=== PATIENT | male | born 1945 | race African-American/Black ===

== ENCOUNTER 2019-06-08 16:28 | Observation (INO) ==
[2019-06-08 17:40] LABS: Basophils % 0.3 % (0.0-0.8); Eosinophils # 0.1 10*3/uL (0.0-0.87); Eosinophils % 0.7 % (0.00-10.9); Hematocrit 40.2 VOL% (42.0-52.0); Immature Granulocytes % 0.5 %; Immature Granulocytes Absolute 0.04 #; Lymphocytes # 0.7 10*3/uL (1.4-4.0); Lymphocytes % 8.1 % (21.2-54.2); Mean Corpuscular HGB Conc 32.3 GM/DL (32-36); Mean Corpuscular Volume 91.4 FL (87-102); Monocytes % 5.1 % (1.7-12.7); Neutrophils % 85.3 % (38.7-73.9); Platelet Count 199 T/CUMM (130-400); Red Cell Distribution Width 14.6 % (9.3-17.3); White Blood Count 8.8 T/CUMM (4-12)
[2019-06-08] MEDS ORDERED: SODIUM CHLORIDE 0.9% 1,000 ML IV STA (17:45)
[2019-06-08 17:51] LABS: INR 1.1; PT Patient Result 11.5 SECS; Partial Thromboplastin Time < 21.0 SECS (0-40)
[2019-06-08 17:59] LABS: Albumin 3.3 G/DL (3.4-5.0); Calcium 8.2 MG/DL (8.5-10.1); Osmolality,Calculated 277.5 MOS/KG (273-304); Total Protein 6.6 G/DL (6.4-8.3)
[2019-06-08 18:19] LABS: Apearance,Urine CLEAR (Clear); Bilirubin,Urine Negative (Negative); Blood, Urine Negative (Negative); Glucose,Urine (UA) Negative (Negative); Ketones,Urine Negative (Negative); Mucus,Urine Occasional /LPF (Occasional); Nitrite,Urine Negative (Negative); Protein,Urine Negative; RBC,Urine 1 /HPF (0-4); Urine Color Yellow (Yellow); Urine Specific Gravity 1.021 (1.001-1.035); Urine Urobilinogen < 2.0 EU/DL (0.2-1.0); WBC,Urine 1 /HPF (0-6)
[2019-06-08 18:20] LABS: Barbiturates Screen,Urine Negative (Negative); Benzodiazepines Screen,Urine Negative (Negative); Cannabinoid Screen,Urine Positive (Negative); Opiate Screen,Urine Negative (Negative); Phencyclidine Screen,Urine Negative (Negative)
[2019-06-08] MEDS ORDERED: ACETAMINOPHEN 325 MG TABLET PO PRN (20:24)
[2019-06-08] MEDS ORDERED: ONDANSETRON 4 MG/2 ML VIAL IV PRN (20:24)
[2019-06-08] MEDS ORDERED: cefTRIAXone 1,000 MG in SYRINGE 1 EACH IV SCH (21:00)
[2019-06-08] MEDS: DOCUSATE SODIUM 100 MG CAPSULE PO SCH (21:54)
[2019-06-08] MEDS: SODIUM CHLORIDE 0.9% 1,000 ML IV SCH (22:02)
[2019-06-09] MEDS: ALBUTEROL/IPRATROPIUM 3 ML NEB RESP TX SCH ×3 (00:53→07:25)
[2019-06-09] MEDS: SODIUM CHLORIDE 0.9% 1,000 ML IV SCH (06:02)
[2019-06-09] MEDS: DOCUSATE SODIUM 100 MG CAPSULE PO SCH (08:48)
[2019-06-09] MEDS ORDERED: PANTOPRAZOLE 40 MG TABLET PO SCH (09:00)
[2019-06-09 11:58] VITALS: BP 119/58
== END 2019-06-09 12:34 | disposition home or self-care (01) ==
LOC: N.ED 16:28 → N.EDINP 17:23 → INTOOBSV 17:23 → N.TELES 19:10
PROVIDERS: ADMIT Family Medicine; ATTEND Internal Medicine

== ENCOUNTER 2019-11-08 04:59 | Inpatient (IN) ==
[2019-11-08] MEDS ORDERED: ALBUTEROL 2.5 MG/3 ML NEB RESP TX STA (05:28)
[2019-11-08] MEDS ORDERED: ACETAMINOPHEN 500 MG TABLET PO STA (05:33)
[2019-11-08] MEDS ORDERED: SODIUM CHLORIDE 0.9% 1,000 ML IV STA (06:23)
[2019-11-08 06:33] LABS: Basophils % 0.5 % (0.0-0.8); Eosinophils # 0.2 10*3/uL (0.0-0.87); Eosinophils % 3.6 % (0.00-10.9); Hematocrit 38.3 VOL% (42.0-52.0); Hemoglobin 12.4 GM/DL (14.0-18.0); Immature Granulocytes % 0.2 %; Immature Granulocytes Absolute 0.01 #; Lymphocytes # 0.9 10*3/uL (1.4-4.0); Lymphocytes % 21.4 % (21.2-54.2); Mean Corpuscular HGB Conc 32.4 GM/DL (32-36); Mean Corpuscular Volume 92.1 FL (87-102); Monocytes % 13.1 % (1.7-12.7); Neutrophils % 61.2 % (38.7-73.9); Platelet Count 183 T/CUMM (130-400); Red Blood Count 4.16 MC/CUMM (3.8-5.5); Red Cell Distribution Width 14.6 % (9.3-17.3); White Blood Count 4.1 T/CUMM (4-12)
[2019-11-08 06:50] LABS: Calcium 8.3 MG/DL (8.5-10.1); Osmolality,Calculated 277.4 MOS/KG (273-304)
[2019-11-08] MEDS ORDERED: cefTRIAXone 1,000 MG in SODIUM CHLORIDE 0.9% 100 ML IV STA (08:55)
[2019-11-08] MEDS ORDERED: ACETAMINOPHEN 325 MG TABLET PO PRN (09:40)
[2019-11-08] MEDS ORDERED: ONDANSETRON 4 MG/2 ML VIAL IV PRN (09:40)
[2019-11-08] MEDS ORDERED: LACTULOSE 20 GM/30 ML UDCUP PO PRN (09:40)
[2019-11-08] MEDS ORDERED: BISACODYL 5 MG TABLET PO PRN (09:40)
[2019-11-08] MEDS ORDERED: cefTRIAXone 1,000 MG in SYRINGE 1 EACH IV SCH (10:30)
[2019-11-08 10:45] LABS: Risk Ratio 3.85; VLDL CHOLESTEROL 30.2 MG/DL
[2019-11-08 10:53] LABS: Hemoglobin 12.1 GM/DL (14.0-18.0)
[2019-11-08] MEDS ORDERED: INFLUENZA VIRUS VACCINE 0.5 ML SYRINGE IM ONE (10:54)
[2019-11-08] MEDS: PANTOPRAZOLE 40 MG VIAL IV SCH (11:05)
[2019-11-08] MEDS: SODIUM CHLORIDE 0.9% 1,000 ML IV SCH ×2 (11:10→22:22)
[2019-11-08] MEDS ORDERED: AZITHROMYCIN INJ 500 MG in SODIUM CHLORIDE 0.9% 250 ML IV SCH (14:00)
[2019-11-08] MEDS: ALBUTEROL/IPRATROPIUM 3 ML NEB RESP TX SCH ×2 (14:13→19:40)
[2019-11-08] MEDS: ACETAMINOPHEN 325 MG TABLET PO PRN ×2 (15:35→22:53)
[2019-11-08] MEDS ORDERED: MAGNESIUM SULF RIDER 2 GM in PREMIX 1 EACH IV PRN (15:49)
[2019-11-08] MEDS ORDERED: MAGNESIUM SULF RIDER 4 GM in PREMIX 1 EACH IV PRN (15:49)
[2019-11-08 15:56] LABS: Hematocrit 33.5 VOL% (42.0-52.0)
[2019-11-08 19:43] LABS: Apearance,Urine CLEAR (Clear); Bilirubin,Urine Negative (Negative); Blood, Urine Negative (Negative); Glucose,Urine (UA) Negative (Negative); Ketones,Urine Negative (Negative); Mucus,Urine Occasional /LPF (Occasional); Nitrite,Urine Negative (Negative); Protein,Urine Negative; RBC,Urine 2 /HPF (0-4); Urine Color Yellow (Yellow); Urine Specific Gravity 1.028 (1.001-1.035); Urine Urobilinogen < 2.0 EU/DL (0.2-1.0)
[2019-11-08] MEDS: SIMVASTATIN 40 MG TABLET PO SCH (20:52)
[2019-11-08 21:58] LABS: Hematocrit 36.1 VOL% (42.0-52.0); Hemoglobin 11.6 GM/DL (14.0-18.0)
[2019-11-09] MEDS ORDERED: IBUPROFEN 600 MG TABLET PO ONE (00:41)
[2019-11-09] MEDS: ALBUTEROL/IPRATROPIUM 3 ML NEB RESP TX SCH ×4 (01:26→19:31)
[2019-11-09 04:54] LABS: Hematocrit 35.4 VOL% (42.0-52.0); Hemoglobin 11.4 GM/DL (14.0-18.0)
[2019-11-09 04:56] LABS: Basophils % 0.4 % (0.0-0.8); Hematocrit 35.5 VOL% (42.0-52.0); Hemoglobin 11.6 GM/DL (14.0-18.0); Immature Granulocytes % 0.4 %; Immature Granulocytes Absolute 0.01 #; Lymphocytes # 0.4 10*3/uL (1.4-4.0); Lymphocytes % 13.2 % (21.2-54.2); Mean Corpuscular HGB Conc 32.7 GM/DL (32-36); Mean Platelet Volume 9.5 FL (9.6-12.0); Monocytes % 9.6 % (1.7-12.7); Neutrophils % 76.4 % (38.7-73.9); Platelet Count 151 T/CUMM (130-400); Red Cell Distribution Width 14.6 % (9.3-17.3); White Blood Count 2.7 T/CUMM (4-12)
[2019-11-09 05:29] LABS: Calcium 7.6 MG/DL (8.5-10.1); Osmolality,Calculated 288.6 MOS/KG (273-304)
[2019-11-09] MEDS: SODIUM CHLORIDE 0.9% 1,000 ML IV SCH ×2 (05:58→19:08)
[2019-11-09] MEDS: LEVOFLOXACIN INJ 750 MG in PREMIX 1 EACH IV SCH (07:59)
[2019-11-09] MEDS: PANTOPRAZOLE 40 MG VIAL IV SCH (09:26)
[2019-11-09] MEDS: PIPERACILLIN/TAZOBACTAM 3,375 MG in SODIUM CHLORIDE 0.9% 100 ML IV SCH ×2 (09:27→19:06)
[2019-11-09 09:56] LABS: Hematocrit 34.8 VOL% (42.0-52.0); Hemoglobin 11.2 GM/DL (14.0-18.0)
[2019-11-09] MEDS: ACETAMINOPHEN 325 MG TABLET PO PRN (15:18)
[2019-11-09 15:54] LABS: Hematocrit 36.2 VOL% (42.0-52.0); Hemoglobin 11.7 GM/DL (14.0-18.0)
[2019-11-09] MEDS: methylPREDNISolone SOD SUC 40 MG/1 ML VIAL IV SCH ×2 (19:06→23:06)
[2019-11-09] MEDS: BUDESONIDE 0.5 MG/2 ML NEB RESP TX SCH (19:31)
[2019-11-09] MEDS: DORNASE ALFA 2.5 MG/2.5 ML VIAL RESP TX SCH (19:46)
[2019-11-09] MEDS: SIMVASTATIN 40 MG TABLET PO SCH (20:40)
[2019-11-09 22:43] LABS: Hematocrit 37.5 VOL% (42.0-52.0); Hemoglobin 12.1 GM/DL (14.0-18.0)
[2019-11-10] MEDS: ALBUTEROL/IPRATROPIUM 3 ML NEB RESP TX SCH ×4 (00:34→19:29)
[2019-11-10] MEDS: PIPERACILLIN/TAZOBACTAM 3,375 MG in SODIUM CHLORIDE 0.9% 100 ML IV SCH ×3 (03:25→18:12)
[2019-11-10] MEDS: methylPREDNISolone SOD SUC 40 MG/1 ML VIAL IV SCH ×4 (04:57→22:36)
[2019-11-10 05:59] LABS: Hematocrit 36.9 VOL% (42.0-52.0); Hemoglobin 11.9 GM/DL (14.0-18.0)
[2019-11-10 06:16] LABS: Calcium 7.5 MG/DL (8.5-10.1)
[2019-11-10] MEDS: LEVOFLOXACIN INJ 750 MG in PREMIX 1 EACH IV SCH (07:44)
[2019-11-10] MEDS: BUDESONIDE 0.5 MG/2 ML NEB RESP TX SCH ×2 (07:47→19:29)
[2019-11-10] MEDS: DOCUSATE SODIUM 100 MG CAPSULE PO PRN (09:23)
[2019-11-10] MEDS: PANTOPRAZOLE 40 MG VIAL IV SCH (09:23)
[2019-11-10] MEDS: SODIUM CHLORIDE 0.9% 1,000 ML IV SCH (09:24)
[2019-11-10 10:22] LABS: Hemoglobin 12.5 GM/DL (14.0-18.0)
[2019-11-10] MEDS: DORNASE ALFA 2.5 MG/2.5 ML VIAL RESP TX SCH ×2 (10:27→19:29)
[2019-11-10 16:02] LABS: Hematocrit 37.3 VOL% (42.0-52.0); Hemoglobin 12.3 GM/DL (14.0-18.0)
[2019-11-10] MEDS: SIMVASTATIN 40 MG TABLET PO SCH (20:39)
[2019-11-10 21:45] LABS: Hematocrit 39.3 VOL% (42.0-52.0); Hemoglobin 12.6 GM/DL (14.0-18.0)
[2019-11-11] MEDS: ALBUTEROL/IPRATROPIUM 3 ML NEB RESP TX SCH ×4 (00:50→19:59)
[2019-11-11] MEDS: PIPERACILLIN/TAZOBACTAM 3,375 MG in SODIUM CHLORIDE 0.9% 100 ML IV SCH ×3 (03:15→18:09)
[2019-11-11] MEDS: methylPREDNISolone SOD SUC 40 MG/1 ML VIAL IV SCH ×4 (04:46→22:55)
[2019-11-11 05:20] LABS: Hematocrit 36.8 VOL% (42.0-52.0); Hemoglobin 12.1 GM/DL (14.0-18.0)
[2019-11-11 05:45] LABS: Osmolality,Calculated 290.8 MOS/KG (273-304)
[2019-11-11] MEDS: SODIUM CHLORIDE 0.9% 1,000 ML IV SCH (07:02)
[2019-11-11] MEDS: BUDESONIDE 0.5 MG/2 ML NEB RESP TX SCH ×2 (07:30→19:59)
[2019-11-11] MEDS: DORNASE ALFA 2.5 MG/2.5 ML VIAL RESP TX SCH ×2 (07:45→19:59)
[2019-11-11] MEDS: LEVOFLOXACIN INJ 750 MG in PREMIX 1 EACH IV SCH (09:31)
[2019-11-11] MEDS: PANTOPRAZOLE 40 MG VIAL IV SCH (09:34)
[2019-11-11] MEDS: SIMVASTATIN 40 MG TABLET PO SCH (20:58)
[2019-11-12] MEDS: ALBUTEROL/IPRATROPIUM 3 ML NEB RESP TX SCH ×4 (00:21→19:02)
[2019-11-12] MEDS: methylPREDNISolone SOD SUC 40 MG/1 ML VIAL IV SCH ×4 (02:10→16:37)
[2019-11-12] MEDS: PIPERACILLIN/TAZOBACTAM 3,375 MG in SODIUM CHLORIDE 0.9% 100 ML IV SCH ×3 (03:22→18:20)
[2019-11-12 05:15] LABS: Hematocrit 37.1 VOL% (42.0-52.0); Hemoglobin 12.2 GM/DL (14.0-18.0); Immature Granulocytes % 0.8 %; Immature Granulocytes Absolute 0.05 #; Lymphocytes # 0.3 10*3/uL (1.4-4.0); Lymphocytes % 4.5 % (21.2-54.2); Mean Corpuscular HGB Conc 32.9 GM/DL (32-36); Mean Corpuscular Volume 89.8 FL (87-102); Mean Platelet Volume 10.6 FL (9.6-12.0); Neutrophils % 91.7 % (38.7-73.9); Platelet Count 152 T/CUMM (130-400); Red Blood Count 4.13 MC/CUMM (3.8-5.5); Red Cell Distribution Width 14.4 % (9.3-17.3); White Blood Count 6.3 T/CUMM (4-12)
[2019-11-12 05:31] LABS: Calcium 8.1 MG/DL (8.5-10.1); Osmolality,Calculated 290.8 MOS/KG (273-304)
[2019-11-12 06:06] LABS: Band Neutrophils 1 % (0-10); Lymphocytes 5 % (20-55); Metamyelocytes 1 %; Platelet Estimate Adequate; Segmented Neutrophils 91 % (50-85); Total Cells Counted 100
[2019-11-12] MEDS: DORNASE ALFA 2.5 MG/2.5 ML VIAL RESP TX SCH ×2 (07:10→19:02)
[2019-11-12] MEDS: BUDESONIDE 0.5 MG/2 ML NEB RESP TX SCH ×2 (07:10→19:02)
[2019-11-12] MEDS ORDERED: METOPROLOL TARTRATE 5 MG/5 ML VIAL IV ONE (07:40)
[2019-11-12] MEDS ORDERED: METOPROLOL TARTRATE 25 MG TABLET PO ONE (09:01)
[2019-11-12] MEDS ORDERED: DILTIAZEM CD 120 MG CAPSULE PO ONE (09:01)
[2019-11-12] MEDS: SODIUM CHLORIDE 0.9% 1,000 ML IV SCH ×4 (09:19→22:15)
[2019-11-12] MEDS: APIXABAN 5 MG TABLET PO SCH ×2 (09:43→21:40)
[2019-11-12] MEDS: DOCUSATE SODIUM 100 MG CAPSULE PO PRN (09:43)
[2019-11-12] MEDS: PANTOPRAZOLE 40 MG VIAL IV SCH (09:52)
[2019-11-12] MEDS: LEVOFLOXACIN INJ 750 MG in PREMIX 1 EACH IV SCH (09:55)
[2019-11-12] MEDS: dilTIAZem Drip 125 MG/125 ML PREMIX IV SCH (10:17)
[2019-11-12] MEDS ORDERED: METOPROLOL TARTRATE 25 MG TABLET PO SCH (21:00)
[2019-11-12] MEDS: SOTALOL 80 MG TABLET PO SCH (21:40)
[2019-11-12] MEDS: SIMVASTATIN 40 MG TABLET PO SCH (21:40)
[2019-11-13] MEDS: ALBUTEROL/IPRATROPIUM 3 ML NEB RESP TX SCH ×3 (00:25→13:25)
[2019-11-13] MEDS: PIPERACILLIN/TAZOBACTAM 3,375 MG in SODIUM CHLORIDE 0.9% 100 ML IV SCH ×2 (05:05→12:00)
[2019-11-13] MEDS: methylPREDNISolone SOD SUC 40 MG/1 ML VIAL IV SCH ×2 (05:05→11:56)
[2019-11-13 05:19] LABS: Hemoglobin 11.4 GM/DL (14.0-18.0); Immature Granulocytes % 0.4 %; Immature Granulocytes Absolute 0.02 #; Lymphocytes # 0.4 10*3/uL (1.4-4.0); Lymphocytes % 6.9 % (21.2-54.2); Mean Corpuscular HGB Conc 32.6 GM/DL (32-36); Mean Corpuscular Volume 90.4 FL (87-102); Mean Platelet Volume 10.5 FL (9.6-12.0); Monocytes % 3.6 % (1.7-12.7); Neutrophils % 89.1 % (38.7-73.9); Platelet Count 131 T/CUMM (130-400); Red Blood Count 3.87 MC/CUMM (3.8-5.5); Red Cell Distribution Width 14.7 % (9.3-17.3); White Blood Count 5.5 T/CUMM (4-12)
[2019-11-13 05:50] LABS: Calcium 7.7 MG/DL (8.5-10.1); Osmolality,Calculated 282.4 MOS/KG (273-304)
[2019-11-13] MEDS: BUDESONIDE 0.5 MG/2 ML NEB RESP TX SCH (07:20)
[2019-11-13] MEDS: DORNASE ALFA 2.5 MG/2.5 ML VIAL RESP TX SCH (07:20)
[2019-11-13] MEDS: SOTALOL 80 MG TABLET PO SCH (09:27)
[2019-11-13] MEDS: APIXABAN 5 MG TABLET PO SCH (09:27)
[2019-11-13] MEDS: PANTOPRAZOLE 40 MG VIAL IV SCH (09:28)
[2019-11-13] MEDS: LEVOFLOXACIN INJ 750 MG in PREMIX 1 EACH IV SCH (09:28)
[2019-11-13] MEDS: dilTIAZem Drip 125 MG/125 ML PREMIX IV SCH (09:29)
[2019-11-13] MEDS: SODIUM CHLORIDE 0.9% 1,000 ML IV SCH (09:30)
[2019-11-13] MEDS ORDERED: MIDAZOLAM 2 MG/2 ML VIAL ONE (10:06)
[2019-11-13] MEDS ORDERED: SEVOFLURANE 1 UNIT/15 MINUTE INH ONE (10:06)
[2019-11-13] MEDS ORDERED: fentaNYL 100 MCG/2 ML VIAL ONE (10:07)
[2019-11-13] MEDS ORDERED: propofoL 200 MG/20 ML VIAL IV ONE (10:07)
[2019-11-13] MEDS ORDERED: LIDOCAINE 2% 5 ML VIAL ONE (10:07)
[2019-11-13] MEDS ORDERED: DEXAMETHASONE 4 MG/1 ML VIAL ONE (10:08)
[2019-11-13] MEDS ORDERED: ONDANSETRON 4 MG/2 ML VIAL ONE (10:08)
[2019-11-13] MEDS ORDERED: PHENYLEPHRINE 1 MG/10 ML SYRINGE IV ONE (10:08)
[2019-11-13] MEDS ORDERED: ETOMIDATE 40 MG/20 ML VIAL IV ONE (10:08)
[2019-11-13] MEDS ORDERED: PROMETHAZINE 25 MG/1 ML VIAL ONE (10:08)
[2019-11-13 11:45] VITALS: BP 143/71
[2019-11-13] MEDS ORDERED: INFLUENZA VIRUS VACCINE 0.5 ML SYRINGE IM ONE (15:30)
== END 2019-11-13 16:35 | disposition home or self-care (01) | DRG 194 ==
LOC: N.ED 04:59 → N.EDINP 09:40 → N.2E 10:00 → N.TELES 11-12 08:22
PROVIDERS: ADMIT Internal Medicine; ATTEND Internal Medicine

== ENCOUNTER 2021-08-16 09:04 | Inpatient (IN) ==
[2021-08-16] MEDS ORDERED: MORPHINE 2 MG/1 ML SYRINGE ONE (09:15)
[2021-08-16] MEDS ORDERED: ONDANSETRON 4 MG/2 ML VIAL ONE (09:15)
[2021-08-16] MEDS ORDERED: ASPIRIN 325 MG TABLET ONE (09:15)
[2021-08-16] MEDS ORDERED: HEPARIN 5,000 UNIT/1 ML VIAL ONE ×2 (09:16→09:44)
[2021-08-16] MEDS ORDERED: SODIUM CHLORIDE 0.9% 1,000 ML IV STA (09:17)
[2021-08-16] MEDS ORDERED: HEPARIN/NACL 0.9% 2 UNITS/ML 2,000 UNIT/1,000 ML BAG IV ONE (09:19)
[2021-08-16] MEDS ORDERED: ONDANSETRON 4 MG/2 ML VIAL IV STA (09:19)
[2021-08-16] MEDS ORDERED: ASPIRIN 325 MG TABLET PO STA (09:19)
[2021-08-16] MEDS ORDERED: MORPHINE 2 MG/1 ML SYRINGE IV STA (09:19)
[2021-08-16] MEDS ORDERED: LIDOCAINE 1% 20 ML VIAL ONE (09:19)
[2021-08-16] MEDS ORDERED: HEPARIN 5,000 UNIT/1 ML VIAL IV ONE (09:19)
[2021-08-16] MEDS ORDERED: MIDAZOLAM 2 MG/2 ML VIAL ONE ×2 (09:25→10:04)
[2021-08-16] MEDS ORDERED: fentaNYL 100 MCG/2 ML VIAL ONE (09:25)
[2021-08-16 09:35] LABS: Basophils % 0.4 % (0.0-0.8); Eosinophils # 0.2 10*3/uL (0.0-0.87); Eosinophils % 3.1 % (0.00-10.9); Hematocrit 38.6 VOL% (42.0-52.0); Hemoglobin 12.6 GM/DL (14.0-18.0); Immature Granulocytes % 0.4 %; Immature Granulocytes Absolute 0.02 #; Lymphocytes # 1.8 10*3/uL (1.4-4.0); Lymphocytes % 36.9 % (21.2-54.2); Mean Corpuscular HGB Conc 32.6 GM/DL (32-36); Mean Corpuscular Volume 91.3 FL (87-102); Mean Platelet Volume 9.5 FL (9.6-12.0); Monocytes % 11.3 % (1.7-12.7); Neutrophils % 47.9 % (38.7-73.9); Platelet Count 213 T/CUMM (130-400); Red Blood Count 4.23 MC/CUMM (3.8-5.5); Red Cell Distribution Width 17.6 % (9.3-17.3); White Blood Count 4.9 T/CUMM (4-12)
[2021-08-16 09:47] LABS: INR 1.2; PT Patient Result 12.7 SECS (10.5-12.0); Partial Thromboplastin Time 39.9 SECS (23.9-33.8)
[2021-08-16 09:56] LABS: Albumin 3.5 G/DL (3.4-5.0); Bilirubin,Total 0.6 MG/DL (0.20-1.00); Osmolality,Calculated 284.4 MOS/KG (273-304); Potassium 3.7 MMOL/L (3.5-5.1); Total Protein 7.3 G/DL (6.4-8.2)
[2021-08-16] MEDS ORDERED: TICAGRELOR 90 MG TABLET ONE (10:03)
[2021-08-16] MEDS ORDERED: ACETAMINOPHEN 325 MG TABLET PO PRN (10:15)
[2021-08-16] MEDS ORDERED: NITROGLYCERIN SL 0.4 MG TABLET SL PRN (10:15)
[2021-08-16] MEDS ORDERED: FLUTICASONE 50 MCG NASAL SPRAY 16 GM BOTTLE BOTH NARES PRN (10:23)
[2021-08-16] MEDS ORDERED: hydrALAZINE 20 MG/1 ML VIAL IV PRN (10:25)
[2021-08-16] MEDS ORDERED: SODIUM CHLORIDE 0.9% 1,000 ML IV SCH (10:30)
[2021-08-16] MEDS ORDERED: MORPHINE 2 MG/1 ML SYRINGE IV ONE (13:02)
[2021-08-16] MEDS ORDERED: PNEUMOCOCCAL VACCINE (13 VALENT) 0.5 ML SYRINGE IM ONE (13:49)
[2021-08-16] MEDS: FAMOTIDINE 20 MG TABLET PO SCH ×2 (14:28→20:13)
[2021-08-16] MEDS: PANTOPRAZOLE 40 MG TABLET PO SCH (14:28)
[2021-08-16] MEDS: METOPROLOL TARTRATE 50 MG TABLET PO SCH (20:08)
[2021-08-16] MEDS: ATORVASTATIN 40 MG TABLET PO SCH (20:14)
[2021-08-16] MEDS: TAMSULOSIN 0.4 MG CAPSULE PO SCH (20:14)
[2021-08-16] MEDS: TICAGRELOR 90 MG TABLET PO SCH (20:14)
[2021-08-17] MEDS ORDERED: DOCUSATE SODIUM 100 MG CAPSULE PO ONE (00:46)
[2021-08-17 05:07] LABS: Basophils % 0.8 % (0.0-0.8); Eosinophils # 0.2 10*3/uL (0.0-0.87); Eosinophils % 3.8 % (0.00-10.9); Hematocrit 37.7 VOL% (42.0-52.0); Hemoglobin 11.8 GM/DL (14.0-18.0); Immature Granulocytes % 0.5 %; Immature Granulocytes Absolute 0.02 #; Lymphocytes # 0.6 10*3/uL (1.4-4.0); Lymphocytes % 14.2 % (21.2-54.2); Mean Corpuscular HGB Conc 31.3 GM/DL (32-36); Mean Corpuscular Volume 92.2 FL (87-102); Mean Platelet Volume 9.8 FL (9.6-12.0); Monocytes % 11.2 % (1.7-12.7); Neutrophils % 69.5 % (38.7-73.9); Platelet Count 193 T/CUMM (130-400); Red Blood Count 4.09 MC/CUMM (3.8-5.5); White Blood Count 3.9 T/CUMM (4-12)
[2021-08-17 05:25] LABS: Calcium 8.7 MG/DL (8.5-10.1); Osmolality,Calculated 282.3 MOS/KG (273-304); Potassium 4.8 MMOL/L (3.5-5.1)
[2021-08-17] MEDS: FAMOTIDINE 20 MG TABLET PO SCH ×2 (08:58→20:21)
[2021-08-17] MEDS: ASPIRIN EC 81 MG TABLET PO SCH (08:58)
[2021-08-17] MEDS: METOPROLOL TARTRATE 50 MG TABLET PO SCH ×2 (08:59→20:38)
[2021-08-17] MEDS: AMIODARONE 200 MG TABLET PO SCH (08:59)
[2021-08-17] MEDS: LOSARTAN 25 MG TABLET PO SCH (08:59)
[2021-08-17] MEDS: PANTOPRAZOLE 40 MG TABLET PO SCH (08:59)
[2021-08-17] MEDS: TICAGRELOR 90 MG TABLET PO SCH ×2 (08:59→20:21)
[2021-08-17] MEDS ORDERED: ALUMINUM/MAGNES/SIMETH MAX STR 30 ML UDCUP PO PRN (13:45)
[2021-08-17] MEDS: ATORVASTATIN 40 MG TABLET PO SCH (20:21)
[2021-08-17] MEDS: TAMSULOSIN 0.4 MG CAPSULE PO SCH (20:21)
[2021-08-18 05:16] LABS: Basophils % 0.3 % (0.0-0.8); Eosinophils # 0.2 10*3/uL (0.0-0.87); Eosinophils % 4.2 % (0.00-10.9); Hematocrit 34.9 VOL% (42.0-52.0); Hemoglobin 11.1 GM/DL (14.0-18.0); Immature Granulocytes % 0.5 %; Immature Granulocytes Absolute 0.02 #; Lymphocytes # 0.8 10*3/uL (1.4-4.0); Lymphocytes % 19.8 % (21.2-54.2); Mean Corpuscular HGB Conc 31.8 GM/DL (32-36); Mean Corpuscular Volume 91.1 FL (87-102); Mean Platelet Volume 9.9 FL (9.6-12.0); Monocytes % 11.7 % (1.7-12.7); Neutrophils % 63.5 % (38.7-73.9); Platelet Count 190 T/CUMM (130-400); Red Blood Count 3.83 MC/CUMM (3.8-5.5); Red Cell Distribution Width 17.9 % (9.3-17.3); White Blood Count 3.8 T/CUMM (4-12)
[2021-08-18 05:39] LABS: Calcium 8.5 MG/DL (8.5-10.1); Osmolality,Calculated 283.3 MOS/KG (273-304); Potassium 4.6 MMOL/L (3.5-5.1)
[2021-08-18] MEDS: TICAGRELOR 90 MG TABLET PO SCH (08:35)
[2021-08-18] MEDS: METOPROLOL TARTRATE 50 MG TABLET PO SCH (08:35)
[2021-08-18] MEDS: ASPIRIN EC 81 MG TABLET PO SCH (08:35)
[2021-08-18] MEDS: FAMOTIDINE 20 MG TABLET PO SCH (08:35)
[2021-08-18] MEDS: LOSARTAN 25 MG TABLET PO SCH (08:35)
[2021-08-18] MEDS: AMIODARONE 200 MG TABLET PO SCH (08:35)
[2021-08-18] MEDS: PANTOPRAZOLE 40 MG TABLET PO SCH (08:35)
[2021-08-18] MEDS ORDERED: BISACODYL 5 MG TABLET PO ONE (11:14)
[2021-08-18 13:06] VITALS: BP 114/55
== END 2021-08-18 15:05 | disposition home or self-care (01) | DRG 247 ==
LOC: N.ED 09:04 → N.CL 09:29 → N.CC 10:23 → N.CL 10:30 → N.CC 13:21 → N.TELEN 08-17 10:15
PROVIDERS: ADMIT Internal Medicine Cardiovascular Disease; ATTEND Internal Medicine Cardiovascular Disease
PROC: CLCCHCL (ICD-10-PCS; 2021-08-16 09:45)

== ENCOUNTER 2022-05-08 09:57 | Inpatient (IN) ==
[2022-05-08 11:19] LABS: Basophils % 0.5 % (0.0-0.8); Eosinophils % 0.8 % (0.00-10.9); Hematocrit 25.3 VOL% (42.0-52.0); Hemoglobin 7.5 GM/DL (14.0-18.0); Immature Granulocytes % 0.8 %; Immature Granulocytes Absolute 0.03 #; Lymphocytes # 0.5 10*3/uL (1.4-4.0); Lymphocytes % 13.7 % (21.2-54.2); Mean Corpuscular HGB Conc 29.6 GM/DL (32-36); Mean Platelet Volume 9.1 FL (9.6-12.0); Monocytes # 0.3 10*3/uL (0.11-0.8); Monocytes % 8.8 % (1.7-12.7); NRBC # 0.03 10*3/uL; Neutrophils % 75.4 % (38.7-73.9); Platelet Count 246 T/CUMM (130-400); Red Blood Count 2.81 MC/CUMM (3.8-5.5); Red Cell Distribution Width 24.7 % (9.3-17.3); White Blood Count 3.6 T/CUMM (4-12)
[2022-05-08 11:33] LABS: INR 1.1; Partial Thromboplastin Time 27.9 SECS (23.7-32.9)
[2022-05-08 11:39] LABS: Albumin 2.8 G/DL (3.4-5.0); Bilirubin,Total 0.4 MG/DL (0.20-1.00); Calcium 8.9 MG/DL (8.5-10.1); Osmolality,Calculated 280.3 MOS/KG (273-304); Potassium 3.9 MMOL/L (3.5-5.1); Total Protein 5.9 G/DL (6.4-8.2)
[2022-05-08] MEDS ORDERED: DEXTROSE 10% 250 ML BAG IV PRN (13:25)
[2022-05-08] MEDS ORDERED: GLUCAGON 1 MG VIAL IM PRN (13:25)
[2022-05-08] MEDS: LACTATED RINGERS 1,000 ML IV SCH (13:43)
[2022-05-08] MEDS: PANTOPRAZOLE 40 MG VIAL IV SCH ×2 (13:48→20:38)
[2022-05-08] MEDS ORDERED: NITROGLYCERIN SL 0.4 MG TABLET SL PRN (13:55)
[2022-05-08 14:06] LABS: Mucus,Urine Occasional /LPF (Occasional); RBC,Urine 1 /HPF (0-4)
[2022-05-08 14:07] LABS: Urine Appearance Clear (Clear); Urine Color Yellow (Yellow)
[2022-05-08 14:08] LABS: Bilirubin,Urine Negative (Negative); Blood, Urine Negative (Negative); Glucose,Urine (UA) Negative (Negative); Ketones,Urine Negative (Negative); Nitrite,Urine Negative (Negative); Protein,Urine Negative (Negative); Urine Specific Gravity 1.025 (1.001-1.035); Urine Urobilinogen 0.2 eU/dL (<2.0); Urine pH 6.5 (4.5-8.0)
[2022-05-08 16:03] LABS: Hematocrit 23.4 VOL% (42.0-52.0); Hemoglobin 6.9 GM/DL (14.0-18.0)
[2022-05-08 16:36] LABS: INR 1.1; PT Patient Result 11.8 SECS (10.5-12.0); Partial Thromboplastin Time 26.4 SECS (23.7-32.9)
[2022-05-08 19:47] LABS: Hematocrit 25.3 VOL% (42.0-52.0); Hemoglobin 7.5 GM/DL (14.0-18.0)
[2022-05-08] MEDS: ATORVASTATIN 40 MG TABLET PO SCH (20:38)
[2022-05-08] MEDS: ACETAMINOPHEN 325 MG TABLET PO PRN (20:48)
[2022-05-09 01:47] LABS: Basophils % 0.7 % (0.0-0.8); Eosinophils # 0.1 10*3/uL (0.0-0.87); Eosinophils % 2.3 % (0.00-10.9); Hematocrit 24.3 VOL% (42.0-52.0); Hemoglobin 7.2 GM/DL (14.0-18.0); Immature Granulocytes % 0.7 %; Immature Granulocytes Absolute 0.02 #; Lymphocytes # 0.5 10*3/uL (1.4-4.0); Lymphocytes % 16.7 % (21.2-54.2); Mean Corpuscular HGB Conc 29.6 GM/DL (32-36); Mean Platelet Volume 8.9 FL (9.6-12.0); Monocytes # 0.3 10*3/uL (0.11-0.8); Monocytes % 10.7 % (1.7-12.7); Neutrophils % 68.9 % (38.7-73.9); Platelet Count 215 T/CUMM (130-400); Red Cell Distribution Width 24.5 % (9.3-17.3)
[2022-05-09] MEDS: LACTATED RINGERS 1,000 ML IV SCH ×2 (01:49→09:18)
[2022-05-09 02:06] LABS: Albumin 2.6 G/DL (3.4-5.0); Bilirubin,Total 0.4 MG/DL (0.20-1.00); Calcium 8.8 MG/DL (8.5-10.1); Osmolality,Calculated 278.5 MOS/KG (273-304); Potassium 3.9 MMOL/L (3.5-5.1); Total Protein 5.6 G/DL (6.4-8.2)
[2022-05-09 02:52] LABS: Eosinophils 1 % (0-10); Lymphocytes 13 % (20-55); Platelet Estimate Adequate; Total Cells Counted 100
[2022-05-09 02:53] LABS: Anisocytosis 1+; Polychromasia 1+; Target Cells 1+
[2022-05-09 07:59] LABS: Hematocrit 25.1 VOL% (42.0-52.0); Hemoglobin 7.5 GM/DL (14.0-18.0)
[2022-05-09] MEDS: predniSONE 20 MG TABLET PO SCH (08:14)
[2022-05-09] MEDS: AMIODARONE 200 MG TABLET PO SCH (08:14)
[2022-05-09] MEDS: PANTOPRAZOLE 40 MG VIAL IV SCH ×2 (08:15→21:13)
[2022-05-09] MEDS ORDERED: SODIUM CHLORIDE 0.9% 1,000 ML IV PRN (10:54)
[2022-05-09] MEDS ORDERED: ALBUTEROL 2.5 MG/3 ML NEB RESP TX PRN (10:56)
[2022-05-09 11:20] LABS: % Iron Saturation 6.8 % (18-50); Ferritin 21.1 ng/mL (26-388)
[2022-05-09] MEDS: ACETAMINOPHEN 325 MG TABLET PO PRN (18:32)
[2022-05-09 19:15] LABS: Hematocrit 30.3 VOL% (42.0-52.0); Hemoglobin 9.1 GM/DL (14.0-18.0)
[2022-05-09] MEDS ORDERED: SERTRALINE 25 MG TABLET PO SCH (21:00)
[2022-05-09] MEDS: ATORVASTATIN 40 MG TABLET PO SCH (21:13)
[2022-05-10 05:59] LABS: Basophils % 0.5 % (0.0-0.8); Eosinophils # 0.1 10*3/uL (0.0-0.87); Hemoglobin 11.1 GM/DL (14.0-18.0); Immature Granulocytes % 0.5 %; Immature Granulocytes Absolute 0.02 #; Lymphocytes # 0.6 10*3/uL (1.4-4.0); Mean Corpuscular HGB Conc 29.5 GM/DL (32-36); Mean Corpuscular Volume 93.5 FL (87-102); Mean Platelet Volume 8.8 FL (9.6-12.0); Monocytes # 0.4 10*3/uL (0.11-0.8); Monocytes % 10.5 % (1.7-12.7); Neutrophils % 72.5 % (38.7-73.9); Platelet Count 211 T/CUMM (130-400); Red Blood Count 4.02 MC/CUMM (3.8-5.5); Red Cell Distribution Width 21.5 % (9.3-17.3); White Blood Count 4.1 T/CUMM (4-12)
[2022-05-10 06:00] LABS: Hematocrit 37.6 VOL% (42.0-52.0)
[2022-05-10 06:12] LABS: Calcium 8.8 MG/DL (8.5-10.1); Osmolality,Calculated 271.8 MOS/KG (273-304)
[2022-05-10] MEDS ORDERED: guaiFENesin/DM ER 600-30 MG TABLET PO PRN (10:21)
[2022-05-10] MEDS ORDERED: FLUTICASONE 50 MCG NASAL SPRAY 16 GM BOTTLE BOTH NARES SCH (10:30)
[2022-05-10] MEDS ORDERED: LACTATED RINGERS 1,000 ML IV SCH (11:18)
[2022-05-10] MEDS ORDERED: LIDOCAINE 2% 5 ML VIAL ONE (12:31)
[2022-05-10] MEDS ORDERED: propofoL 200 MG/20 ML VIAL IV ONE (12:31)
[2022-05-10] MEDS ORDERED: ETOMIDATE 20 MG/10 ML VIAL IV ONE (12:36)
[2022-05-10 13:22] VITALS: BP 111/55
[2022-05-10] MEDS: PANTOPRAZOLE 40 MG VIAL IV SCH (13:55)
[2022-05-10] MEDS: AMIODARONE 200 MG TABLET PO SCH (13:56)
[2022-05-10] MEDS: predniSONE 20 MG TABLET PO SCH (13:56)
== END 2022-05-10 15:40 | disposition home or self-care (01) | DRG 378 ==
LOC: N.ED 09:57 → SUATTDRO 13:27 → N.EDINP 13:27 → N.TELES 15:05
PROVIDERS: ADMIT Internal Medicine; ATTEND Internal Medicine

== ENCOUNTER 2022-05-29 08:08 | Inpatient (IN) ==
[2022-05-29 08:33] LABS: Basophils % 0.4 % (0.0-0.8); Eosinophils # 0.1 10*3/uL (0.0-0.87); Eosinophils % 0.8 % (0.00-10.9); Hemoglobin 9.3 GM/DL (14.0-18.0); Immature Granulocytes % 1.5 %; Immature Granulocytes Absolute 0.11 #; Lymphocytes # 0.6 10*3/uL (1.4-4.0); Lymphocytes % 7.8 % (21.2-54.2); Mean Corpuscular Volume 87.5 FL (87-102); Mean Platelet Volume 9.6 FL (9.6-12.0); Monocytes # 0.4 10*3/uL (0.11-0.8); Monocytes % 4.8 % (1.7-12.7); NRBC # 0.03 10*3/uL; Neutrophils % 84.7 % (38.7-73.9); Platelet Count 254 T/CUMM (130-400); Red Blood Count 3.43 MC/CUMM (3.8-5.5); Red Cell Distribution Width 20.6 % (9.3-17.3); White Blood Count 7.5 T/CUMM (4-12)
[2022-05-29 08:58] LABS: Albumin 2.7 G/DL (3.4-5.0); Bilirubin,Total 0.5 MG/DL (0.20-1.00); Calcium 8.3 MG/DL (8.5-10.1); Osmolality,Calculated 277.5 MOS/KG (273-304); Potassium 4.2 MMOL/L (3.5-5.1)
[2022-05-29] MEDS ORDERED: MECLIZINE 12.5 MG TABLET PO STA (10:37)
[2022-05-29] MEDS ORDERED: MECLIZINE 25 MG TABLET PO STA (10:43)
[2022-05-29] MEDS ORDERED: ONDANSETRON 4 MG/2 ML VIAL IV PRN (12:57)
[2022-05-29] MEDS ORDERED: guaiFENesin/DM ER 600-30 MG TABLET PO PRN (12:57)
[2022-05-29] MEDS ORDERED: DEXTROSE 10% 250 ML BAG IV PRN (12:57)
[2022-05-29] MEDS ORDERED: GLUCAGON 1 MG VIAL IM PRN (12:57)
[2022-05-29] MEDS ORDERED: NITROGLYCERIN SL 0.4 MG TABLET SL PRN (13:04)
[2022-05-29] MEDS: HEPARIN 5,000 UNIT/1 ML VIAL SUBCUT SCH (13:47)
[2022-05-29] MEDS ORDERED: TAMSULOSIN 0.4 MG CAPSULE PO SCH (19:00)
[2022-05-29] MEDS ORDERED: SODIUM CHLORIDE 0.9% 1,000 ML IV SCH (20:30)
[2022-05-30] MEDS: ACETAMINOPHEN 325 MG TABLET PO PRN (01:04)
[2022-05-30] MEDS: HEPARIN 5,000 UNIT/1 ML VIAL SUBCUT SCH ×2 (01:05→12:15)
[2022-05-30 01:31] LABS: Basophils % 0.3 % (0.0-0.8); Eosinophils # 0.1 10*3/uL (0.0-0.87); Eosinophils % 1.2 % (0.00-10.9); Hematocrit 28.6 VOL% (42.0-52.0); Hemoglobin 8.5 GM/DL (14.0-18.0); Immature Granulocytes % 0.7 %; Immature Granulocytes Absolute 0.05 #; Lymphocytes # 0.6 10*3/uL (1.4-4.0); Lymphocytes % 8.9 % (21.2-54.2); Mean Corpuscular HGB Conc 29.7 GM/DL (32-36); Mean Corpuscular Volume 89.9 FL (87-102); Mean Platelet Volume 9.9 FL (9.6-12.0); Monocytes # 0.3 10*3/uL (0.11-0.8); Monocytes % 4.6 % (1.7-12.7); Neutrophils % 84.3 % (38.7-73.9); Platelet Count 237 T/CUMM (130-400); Red Blood Count 3.18 MC/CUMM (3.8-5.5); Red Cell Distribution Width 20.2 % (9.3-17.3); White Blood Count 6.8 T/CUMM (4-12)
[2022-05-30 01:45] LABS: Calcium 8.3 MG/DL (8.5-10.1); Potassium 3.7 MMOL/L (3.5-5.1)
[2022-05-30] MEDS ORDERED: SODIUM CHLORIDE 0.9% 1,000 ML IV ONE (04:18)
[2022-05-30] MEDS: ASPIRIN EC 81 MG TABLET PO SCH (08:53)
[2022-05-30] MEDS: AMIODARONE 200 MG TABLET PO SCH (08:54)
[2022-05-30] MEDS: ATORVASTATIN 80 MG TABLET PO SCH (08:54)
[2022-05-30] MEDS: MONTELUKAST 10 MG TABLET PO SCH (08:54)
[2022-05-30] MEDS: FERROUS SULFATE 325 MG TABLET PO SCH (08:54)
[2022-05-30] MEDS: PANTOPRAZOLE 40 MG TABLET PO SCH (08:54)
[2022-05-30] MEDS: CHOLECALCIFEROL 5,000 UNIT TABLET PO SCH ×2 (08:58→21:10)
[2022-05-30] MEDS ORDERED: predniSONE 20 MG TABLET PO SCH (09:00)
[2022-05-30] MEDS: methylPREDNISolone SOD SUC 40 MG/1 ML VIAL IV SCH ×2 (15:04→22:05)
[2022-05-30] MEDS: cefTRIAXone 1,000 MG in SODIUM CHLORIDE 0.9% 100 ML IV SCH (15:06)
[2022-05-30] MEDS: TAMSULOSIN 0.4 MG CAPSULE PO SCH (21:10)
[2022-05-31] MEDS: HEPARIN 5,000 UNIT/1 ML VIAL SUBCUT SCH ×2 (01:38→14:10)
[2022-05-31 04:51] LABS: Hematocrit 27.6 VOL% (42.0-52.0); Hemoglobin 8.4 GM/DL (14.0-18.0); Immature Granulocytes % 0.8 %; Immature Granulocytes Absolute 0.06 #; Lymphocytes # 0.3 10*3/uL (1.4-4.0); Lymphocytes % 4.3 % (21.2-54.2); Mean Corpuscular HGB Conc 30.4 GM/DL (32-36); Mean Corpuscular Volume 88.2 FL (87-102); Mean Platelet Volume 9.7 FL (9.6-12.0); Monocytes # 0.1 10*3/uL (0.11-0.8); Monocytes % 1.3 % (1.7-12.7); Neutrophils % 93.6 % (38.7-73.9); Platelet Count 256 T/CUMM (130-400); Red Blood Count 3.13 MC/CUMM (3.8-5.5); Red Cell Distribution Width 19.9 % (9.3-17.3); White Blood Count 7.5 T/CUMM (4-12)
[2022-05-31 05:08] LABS: Calcium 8.6 MG/DL (8.5-10.1); Osmolality,Calculated 283.4 MOS/KG (273-304); Potassium 4.7 MMOL/L (3.5-5.1)
[2022-05-31 05:14] LABS: Lymphocytes 3 % (20-55); Platelet Estimate Normal; Total Cells Counted 100
[2022-05-31] MEDS: ASPIRIN EC 81 MG TABLET PO SCH (08:21)
[2022-05-31] MEDS: MONTELUKAST 10 MG TABLET PO SCH (08:22)
[2022-05-31] MEDS: PANTOPRAZOLE 40 MG TABLET PO SCH (08:22)
[2022-05-31] MEDS: AMIODARONE 200 MG TABLET PO SCH (08:22)
[2022-05-31] MEDS: FERROUS SULFATE 325 MG TABLET PO SCH (08:22)
[2022-05-31] MEDS: ATORVASTATIN 80 MG TABLET PO SCH (08:22)
[2022-05-31] MEDS: methylPREDNISolone SOD SUC 40 MG/1 ML VIAL IV SCH ×3 (08:24→21:55)
[2022-05-31] MEDS: CHOLECALCIFEROL 5,000 UNIT TABLET PO SCH ×2 (08:27→21:54)
[2022-05-31 08:33] LABS: INR 1.1
[2022-05-31] MEDS: cefTRIAXone 1,000 MG in SODIUM CHLORIDE 0.9% 100 ML IV SCH (14:09)
[2022-05-31] MEDS: TAMSULOSIN 0.4 MG CAPSULE PO SCH (21:54)
[2022-06-01] MEDS: HEPARIN 5,000 UNIT/1 ML VIAL SUBCUT SCH ×2 (01:56→12:53)
[2022-06-01] MEDS: ACETAMINOPHEN 325 MG TABLET PO PRN (04:40)
[2022-06-01 05:02] LABS: Hemoglobin 7.8 GM/DL (14.0-18.0); Immature Granulocytes % 0.8 %; Immature Granulocytes Absolute 0.09 #; Lymphocytes # 0.3 10*3/uL (1.4-4.0); Lymphocytes % 2.6 % (21.2-54.2); Mean Corpuscular Volume 88.7 FL (87-102); Mean Platelet Volume 9.7 FL (9.6-12.0); Monocytes # 0.4 10*3/uL (0.11-0.8); Monocytes % 3.6 % (1.7-12.7); Platelet Count 265 T/CUMM (130-400); Red Blood Count 2.93 MC/CUMM (3.8-5.5); Red Cell Distribution Width 19.7 % (9.3-17.3); White Blood Count 11.4 T/CUMM (4-12)
[2022-06-01 05:26] LABS: Calcium 8.2 MG/DL (8.5-10.1); Osmolality,Calculated 281.7 MOS/KG (273-304); Potassium 4.7 MMOL/L (3.5-5.1)
[2022-06-01 05:56] LABS: Anisocytosis 1+; Burr Cells Few; Lymphocytes 2 % (20-55); Macrocytosis 1+; Platelet Estimate Normal; Tear Drop Cells Few; Total Cells Counted 100
[2022-06-01] MEDS: methylPREDNISolone SOD SUC 40 MG/1 ML VIAL IV SCH ×3 (07:03→22:30)
[2022-06-01] MEDS: FERROUS SULFATE 325 MG TABLET PO SCH (09:35)
[2022-06-01] MEDS: MONTELUKAST 10 MG TABLET PO SCH (09:35)
[2022-06-01] MEDS: CHOLECALCIFEROL 5,000 UNIT TABLET PO SCH ×2 (09:35→22:10)
[2022-06-01] MEDS: AMIODARONE 200 MG TABLET PO SCH (09:35)
[2022-06-01] MEDS: PANTOPRAZOLE 40 MG TABLET PO SCH (09:36)
[2022-06-01] MEDS: ASPIRIN EC 81 MG TABLET PO SCH (09:36)
[2022-06-01] MEDS: ATORVASTATIN 80 MG TABLET PO SCH (09:36)
[2022-06-01] MEDS ORDERED: ALBUTEROL 2.5 MG/3 ML NEB RESP TX PRN (13:23)
[2022-06-01] MEDS: ALBUTEROL/IPRATROPIUM 3 ML NEB RESP TX SCH ×3 (13:26→19:35)
[2022-06-01] MEDS ORDERED: ZALEPLON 5 MG CAPSULE PO PRN (13:29)
[2022-06-01] MEDS: cefTRIAXone 1,000 MG in SODIUM CHLORIDE 0.9% 100 ML IV SCH (16:53)
[2022-06-01] MEDS: TAMSULOSIN 0.4 MG CAPSULE PO SCH (22:10)
[2022-06-02] MEDS: ALBUTEROL/IPRATROPIUM 3 ML NEB RESP TX SCH ×7 (00:06→23:54)
[2022-06-02] MEDS: HEPARIN 5,000 UNIT/1 ML VIAL SUBCUT SCH ×3 (01:05→15:12)
[2022-06-02 05:11] LABS: Eosinophils % 0.3 % (0.00-10.9); Hematocrit 26.9 VOL% (42.0-52.0); Hemoglobin 8.2 GM/DL (14.0-18.0); Immature Granulocytes % 1.5 %; Lymphocytes # 0.5 10*3/uL (1.4-4.0); Lymphocytes % 6.8 % (21.2-54.2); Mean Corpuscular HGB Conc 30.5 GM/DL (32-36); Mean Corpuscular Volume 89.4 FL (87-102); Mean Platelet Volume 9.9 FL (9.6-12.0); Monocytes # 0.2 10*3/uL (0.11-0.8); Monocytes % 3.3 % (1.7-12.7); NRBC # 0.03 10*3/uL; Neutrophils % 88.1 % (38.7-73.9); Platelet Count 282 T/CUMM (130-400); Red Blood Count 3.01 MC/CUMM (3.8-5.5); Red Cell Distribution Width 19.9 % (9.3-17.3); White Blood Count 6.6 T/CUMM (4-12)
[2022-06-02 05:36] LABS: Calcium 8.6 MG/DL (8.5-10.1); Osmolality,Calculated 280.4 MOS/KG (273-304); Potassium 3.8 MMOL/L (3.5-5.1)
[2022-06-02] MEDS: methylPREDNISolone SOD SUC 40 MG/1 ML VIAL IV SCH ×3 (07:22→22:38)
[2022-06-02] MEDS: AMIODARONE 200 MG TABLET PO SCH (09:00)
[2022-06-02] MEDS: MONTELUKAST 10 MG TABLET PO SCH (09:00)
[2022-06-02] MEDS: FERROUS SULFATE 325 MG TABLET PO SCH (09:00)
[2022-06-02] MEDS: PANTOPRAZOLE 40 MG TABLET PO SCH (09:00)
[2022-06-02] MEDS: ATORVASTATIN 80 MG TABLET PO SCH (09:00)
[2022-06-02] MEDS: CHOLECALCIFEROL 5,000 UNIT TABLET PO SCH ×2 (09:00→20:47)
[2022-06-02] MEDS: ASPIRIN EC 81 MG TABLET PO SCH (09:00)
[2022-06-02] MEDS: cefTRIAXone 1,000 MG in SODIUM CHLORIDE 0.9% 100 ML IV SCH (15:10)
[2022-06-02] MEDS: TAMSULOSIN 0.4 MG CAPSULE PO SCH (20:47)
[2022-06-02] MEDS: ZALEPLON 5 MG CAPSULE PO PRN (20:47)
[2022-06-03] MEDS: ALBUTEROL/IPRATROPIUM 3 ML NEB RESP TX SCH ×5 (03:23→19:12)
[2022-06-03 07:20] LABS: Hematocrit 26.2 VOL% (42.0-52.0); Hemoglobin 7.8 GM/DL (14.0-18.0); Immature Granulocytes % 1.6 %; Immature Granulocytes Absolute 0.13 #; Lymphocytes # 0.3 10*3/uL (1.4-4.0); Mean Corpuscular HGB Conc 29.8 GM/DL (32-36); Mean Corpuscular Volume 88.8 FL (87-102); Mean Platelet Volume 10.2 FL (9.6-12.0); Monocytes # 0.1 10*3/uL (0.11-0.8); Monocytes % 1.3 % (1.7-12.7); NRBC # 0.02 10*3/uL; Neutrophils % 94.1 % (38.7-73.9); Platelet Count 299 T/CUMM (130-400); Red Blood Count 2.95 MC/CUMM (3.8-5.5); White Blood Count 8.2 T/CUMM (4-12)
[2022-06-03] MEDS: methylPREDNISolone SOD SUC 40 MG/1 ML VIAL IV SCH ×3 (07:24→22:12)
[2022-06-03] MEDS: HEPARIN 5,000 UNIT/1 ML VIAL SUBCUT SCH ×2 (07:28→12:36)
[2022-06-03 07:41] LABS: Calcium 8.6 MG/DL (8.5-10.1); Lymphocytes 1 % (20-55); Nucleated Red Blood Cells 1 (0-5); Platelet Estimate Adequate; Potassium 4.8 MMOL/L (3.5-5.1); Total Cells Counted 100
[2022-06-03 07:42] LABS: Hypochromia Slight; Microcytosis Slight
[2022-06-03] MEDS: AMIODARONE 200 MG TABLET PO SCH (08:38)
[2022-06-03] MEDS: ASPIRIN EC 81 MG TABLET PO SCH (08:38)
[2022-06-03] MEDS: FERROUS SULFATE 325 MG TABLET PO SCH (08:39)
[2022-06-03] MEDS: MONTELUKAST 10 MG TABLET PO SCH (08:39)
[2022-06-03] MEDS: CHOLECALCIFEROL 5,000 UNIT TABLET PO SCH ×2 (08:39→22:12)
[2022-06-03] MEDS: PANTOPRAZOLE 40 MG TABLET PO SCH (08:39)
[2022-06-03] MEDS: ATORVASTATIN 80 MG TABLET PO SCH (08:39)
[2022-06-03] MEDS: DOXYCYCLINE HYCLATE INJ 100 MG in SODIUM CHLORIDE 0.9% 100 ML IV SCH ×2 (08:47→22:13)
[2022-06-03] MEDS: cefTRIAXone 1,000 MG in SODIUM CHLORIDE 0.9% 100 ML IV SCH (14:28)
[2022-06-03] MEDS: ZALEPLON 5 MG CAPSULE PO PRN (22:11)
[2022-06-03] MEDS: TAMSULOSIN 0.4 MG CAPSULE PO SCH (22:12)
[2022-06-04] MEDS: HEPARIN 5,000 UNIT/1 ML VIAL SUBCUT SCH ×2 (01:38→14:57)
[2022-06-04] MEDS: ALBUTEROL/IPRATROPIUM 3 ML NEB RESP TX SCH ×7 (02:20→23:55)
[2022-06-04] MEDS: methylPREDNISolone SOD SUC 40 MG/1 ML VIAL IV SCH ×3 (06:17→21:59)
[2022-06-04 07:45] LABS: Hematocrit 26.9 VOL% (42.0-52.0); Hemoglobin 8.3 GM/DL (14.0-18.0); Immature Granulocytes % 1.4 %; Immature Granulocytes Absolute 0.15 #; Lymphocytes # 0.3 10*3/uL (1.4-4.0); Lymphocytes % 2.8 % (21.2-54.2); Mean Corpuscular HGB Conc 30.9 GM/DL (32-36); Mean Corpuscular Volume 88.2 FL (87-102); Mean Platelet Volume 9.8 FL (9.6-12.0); Monocytes # 0.3 10*3/uL (0.11-0.8); Monocytes % 2.9 % (1.7-12.7); NRBC # 0.08 10*3/uL; Neutrophils % 92.9 % (38.7-73.9); Platelet Count 304 T/CUMM (130-400); Red Blood Count 3.05 MC/CUMM (3.8-5.5); White Blood Count 10.9 T/CUMM (4-12)
[2022-06-04] MEDS ORDERED: PROMETHAZINE 25 MG/1 ML VIAL IM ONE (08:00)
[2022-06-04] MEDS ORDERED: GLYCOPYRROLATE 0.4 MG/2 ML VIAL IM ONE (08:00)
[2022-06-04] MEDS ORDERED: MEPERIDINE 50 MG/1 ML VIAL IM ONE (08:00)
[2022-06-04 08:05] LABS: Hypochromia Slight; Lymphocytes 3 % (20-55); Microcytosis Slight; Platelet Estimate Adequate; Total Cells Counted 100
[2022-06-04 08:09] LABS: Calcium 9.1 MG/DL (8.5-10.1); Osmolality,Calculated 281.7 MOS/KG (273-304)
[2022-06-04] MEDS ORDERED: LIDOCAINE 2% VISCOUS 100 ML BOTTLE SWISH/SPIT ONE (08:30)
[2022-06-04] MEDS ORDERED: LIDOCAINE 2% 20 ML VIAL RESP TX ONE (08:30)
[2022-06-04] MEDS ORDERED: MIDAZOLAM 2 MG/2 ML VIAL IV ONE (08:30)
[2022-06-04] MEDS ORDERED: LIDOCAINE 1% 20 ML VIAL MISC INJ ONE (08:30)
[2022-06-04] MEDS ORDERED: EPINEPHrine 1 MG/ML VIAL ET ONE (09:12)
[2022-06-04] MEDS: ASPIRIN EC 81 MG TABLET PO SCH (10:55)
[2022-06-04] MEDS: CHOLECALCIFEROL 5,000 UNIT TABLET PO SCH ×2 (10:55→21:59)
[2022-06-04] MEDS: DOXYCYCLINE HYCLATE INJ 100 MG in SODIUM CHLORIDE 0.9% 100 ML IV SCH ×2 (11:06→22:00)
[2022-06-04] MEDS: cefTRIAXone 1,000 MG in SODIUM CHLORIDE 0.9% 100 ML IV SCH (15:59)
[2022-06-04] MEDS: ATORVASTATIN 80 MG TABLET PO SCH (16:00)
[2022-06-04] MEDS: AMIODARONE 200 MG TABLET PO SCH (16:01)
[2022-06-04] MEDS: FERROUS SULFATE 325 MG TABLET PO SCH (16:01)
[2022-06-04] MEDS: PANTOPRAZOLE 40 MG TABLET PO SCH (16:01)
[2022-06-04] MEDS: MONTELUKAST 10 MG TABLET PO SCH (16:01)
[2022-06-04] MEDS: TAMSULOSIN 0.4 MG CAPSULE PO SCH (21:59)
[2022-06-04] MEDS: ZALEPLON 5 MG CAPSULE PO PRN (22:02)
[2022-06-05] MEDS: ALBUTEROL/IPRATROPIUM 3 ML NEB RESP TX SCH ×5 (04:06→18:45)
[2022-06-05 05:14] LABS: Basophils % 0.1 % (0.0-0.8); Hematocrit 25.8 VOL% (42.0-52.0); Hemoglobin 7.8 GM/DL (14.0-18.0); Immature Granulocytes % 0.7 %; Immature Granulocytes Absolute 0.06 #; Lymphocytes # 0.1 10*3/uL (1.4-4.0); Lymphocytes % 1.7 % (21.2-54.2); Mean Corpuscular HGB Conc 30.2 GM/DL (32-36); Mean Corpuscular Volume 87.8 FL (87-102); Mean Platelet Volume 9.7 FL (9.6-12.0); Monocytes # 0.1 10*3/uL (0.11-0.8); Monocytes % 1.5 % (1.7-12.7); NRBC # 0.07 10*3/uL; Platelet Count 293 T/CUMM (130-400); Red Blood Count 2.94 MC/CUMM (3.8-5.5); Red Cell Distribution Width 20.1 % (9.3-17.3); White Blood Count 8.1 T/CUMM (4-12)
[2022-06-05 05:38] LABS: Calcium 8.5 MG/DL (8.5-10.1); Lymphocytes 4 % (20-55); Nucleated Red Blood Cells 1 (0-5); Osmolality,Calculated 289.4 MOS/KG (273-304); Potassium 4.6 MMOL/L (3.5-5.1); Total Cells Counted 100
[2022-06-05 05:39] LABS: Hypochromia Slight; Microcytosis Slight; Platelet Estimate Adequate
[2022-06-05] MEDS: methylPREDNISolone SOD SUC 40 MG/1 ML VIAL IV SCH (06:34)
[2022-06-05] MEDS: HEPARIN 5,000 UNIT/1 ML VIAL SUBCUT SCH ×2 (06:35→14:22)
[2022-06-05 10:26] LABS: % Iron Saturation 4.6 % (18-50); Free T4 (Free Thyroxine) 0.28 NG/DL (0.76-1.46); Iron 11 UG/DL (65-175); Iron Binding Capacity 237 UG/DL (250-450); Rheumatoid Factor < 15 IU/ML (<15)
[2022-06-05] MEDS: MONTELUKAST 10 MG TABLET PO SCH ×3 (10:26→20:40)
[2022-06-05] MEDS: FERROUS SULFATE 325 MG TABLET PO SCH ×2 (10:26→20:40)
[2022-06-05] MEDS: PANTOPRAZOLE 40 MG TABLET PO SCH (10:26)
[2022-06-05] MEDS: AMIODARONE 200 MG TABLET PO SCH (10:26)
[2022-06-05] MEDS: CHOLECALCIFEROL 5,000 UNIT TABLET PO SCH ×2 (10:26→20:40)
[2022-06-05] MEDS: ATORVASTATIN 80 MG TABLET PO SCH (10:26)
[2022-06-05] MEDS: ASPIRIN EC 81 MG TABLET PO SCH (10:26)
[2022-06-05] MEDS: DEXAMETHASONE 4 MG TABLET PO SCH (10:27)
[2022-06-05] MEDS: SODIUM CHLORIDE 0.9% 1,000 ML IV SCH (14:16)
[2022-06-05] MEDS: DOXYCYCLINE HYCLATE INJ 100 MG in SODIUM CHLORIDE 0.9% 100 ML IV SCH ×2 (14:19→20:42)
[2022-06-05] MEDS: cefTRIAXone 1,000 MG in SODIUM CHLORIDE 0.9% 100 ML IV SCH (16:20)
[2022-06-05] MEDS: TAMSULOSIN 0.4 MG CAPSULE PO SCH (20:40)
[2022-06-06] MEDS: ALBUTEROL/IPRATROPIUM 3 ML NEB RESP TX SCH ×6 (00:12→19:15)
[2022-06-06] MEDS: HEPARIN 5,000 UNIT/1 ML VIAL SUBCUT SCH ×2 (02:18→13:22)
[2022-06-06 05:01] LABS: Basophils % 0.1 % (0.0-0.8); Hematocrit 27.6 VOL% (42.0-52.0); Hemoglobin 8.3 GM/DL (14.0-18.0); Immature Granulocytes % 1.9 %; Immature Granulocytes Absolute 0.18 #; Lymphocytes # 0.4 10*3/uL (1.4-4.0); Lymphocytes % 3.9 % (21.2-54.2); Mean Corpuscular HGB Conc 30.1 GM/DL (32-36); Mean Corpuscular Volume 87.9 FL (87-102); Mean Platelet Volume 10.2 FL (9.6-12.0); Monocytes # 0.4 10*3/uL (0.11-0.8); Monocytes % 3.6 % (1.7-12.7); Neutrophils % 90.5 % (38.7-73.9); Platelet Count 285 T/CUMM (130-400); Red Blood Count 3.14 MC/CUMM (3.8-5.5); Red Cell Distribution Width 20.1 % (9.3-17.3); White Blood Count 9.6 T/CUMM (4-12)
[2022-06-06] MEDS: SODIUM CHLORIDE 0.9% 1,000 ML IV SCH ×3 (05:03→10:46)
[2022-06-06 05:22] LABS: Hypochromia Slight; Lymphocytes 2 % (20-55); Microcytosis Slight; Nucleated Red Blood Cells 2 (0-5); Platelet Estimate Adequate; Total Cells Counted 100
[2022-06-06 05:28] LABS: Calcium 8.8 MG/DL (8.5-10.1); Osmolality,Calculated 287.3 MOS/KG (273-304); Potassium 4.3 MMOL/L (3.5-5.1)
[2022-06-06 08:37] LABS: Arterial Base Excess iSTAT 0 MMOL/L (-2.5-2.5); Arterial Bicarbonate iSTAT 24.6 MMOL/L (20-26); Arterial O2 Saturation iSTAT 47 % (95-100); Arterial PCO2 iSTAT 40 MM HG (35-48); Arterial PO2 iSTAT 26 MM HG (80-95); Arterial Total CO2 iSTAT 26 MMO/L (23-27); Arterial pH iSTAT 7.396 (7.35-7.45)
[2022-06-06 08:37] LABS: Arterial Base Excess iSTAT 0 MMOL/L (-2.5-2.5); Arterial Bicarbonate iSTAT 24.6 MMOL/L (20-26); Arterial O2 Saturation iSTAT 99 % (95-100); Arterial PCO2 iSTAT 39 MM HG (35-48); Arterial PO2 iSTAT 153 MM HG (80-95); Arterial Total CO2 iSTAT 26 MMO/L (23-27); Arterial pH iSTAT 7.407 (7.35-7.45)
[2022-06-06] MEDS: DEXAMETHASONE 4 MG TABLET PO SCH (09:14)
[2022-06-06] MEDS: MONTELUKAST 10 MG TABLET PO SCH ×2 (09:14→20:36)
[2022-06-06] MEDS: CHOLECALCIFEROL 5,000 UNIT TABLET PO SCH ×2 (09:15→20:36)
[2022-06-06] MEDS: ATORVASTATIN 80 MG TABLET PO SCH (09:15)
[2022-06-06] MEDS: PANTOPRAZOLE 40 MG TABLET PO SCH (09:15)
[2022-06-06] MEDS: ASPIRIN EC 81 MG TABLET PO SCH (09:15)
[2022-06-06] MEDS: AMIODARONE 200 MG TABLET PO SCH (09:15)
[2022-06-06] MEDS: FERROUS SULFATE 325 MG TABLET PO SCH (09:15)
[2022-06-06] MEDS: LEVOTHYROXINE 100 MCG VIAL IV SCH (10:24)
[2022-06-06] MEDS: DEXAMETHASONE 4 MG/1 ML VIAL IV SCH (10:27)
[2022-06-06] MEDS: FERRIC GLUCONATE COMPLEX 125 MG in SODIUM CHLORIDE 0.9% 100 ML IV SCH (10:28)
[2022-06-06] MEDS: DOXYCYCLINE HYCLATE INJ 100 MG in SODIUM CHLORIDE 0.9% 100 ML IV SCH (10:46)
[2022-06-06] MEDS: CLINDAMYCIN INJ 300 MG/50 ML PREMIX IV SCH ×3 (12:00→20:36)
[2022-06-06] MEDS: PIPERACILLIN/TAZOBACTAM 3,375 MG in SODIUM CHLORIDE 0.9% 100 ML IV SCH ×2 (13:22→18:19)
[2022-06-06] MEDS: POLYETHYLENE GLYCOL POWDER 17 GM PACK PO SCH (15:55)
[2022-06-06] MEDS: METOPROLOL TARTRATE 25 MG TABLET PO SCH (20:35)
[2022-06-06] MEDS: DOCUSATE SODIUM 100 MG CAPSULE PO SCH (20:35)
[2022-06-06] MEDS: TAMSULOSIN 0.4 MG CAPSULE PO SCH (20:35)
[2022-06-06 23:26] LABS: M. Tuberculosis PCR Result Negative (Negative); M. Tuberculosis PCR Source SPUTUM
[2022-06-07] MEDS: ALBUTEROL/IPRATROPIUM 3 ML NEB RESP TX SCH ×6 (00:10→19:47)
[2022-06-07] MEDS: PIPERACILLIN/TAZOBACTAM 3,375 MG in SODIUM CHLORIDE 0.9% 100 ML IV SCH ×3 (02:31→17:29)
[2022-06-07] MEDS: CLINDAMYCIN INJ 300 MG/50 ML PREMIX IV SCH ×4 (02:32→21:04)
[2022-06-07] MEDS: HEPARIN 5,000 UNIT/1 ML VIAL SUBCUT SCH ×2 (02:33→14:09)
[2022-06-07] MEDS ORDERED: MORPHINE 2 MG/1 ML SYRINGE IM ONE (03:34)
[2022-06-07] MEDS ORDERED: MORPHINE 2 MG/1 ML SYRINGE IV ONE (03:41)
[2022-06-07 03:46] LABS: Arterial Base Excess iSTAT -1 MMOL/L (-2.5-2.5); Arterial Bicarbonate iSTAT 22.5 MMOL/L (20-26); Arterial O2 Saturation iSTAT 92 % (95-100); Arterial PCO2 iSTAT 32 MM HG (35-48); Arterial PO2 iSTAT 58 MM HG (80-95); Arterial Total CO2 iSTAT 23 MMO/L (23-27); Arterial pH iSTAT 7.461 (7.35-7.45)
[2022-06-07] MEDS ORDERED: ROCURONIUM 100 MG/10 ML VIAL IV ONE (03:50)
[2022-06-07] MEDS ORDERED: ETOMIDATE 20 MG/10 ML VIAL IV ONE (03:50)
[2022-06-07] MEDS ORDERED: MORPHINE 2 MG/1 ML SYRINGE IV PRN (04:01)
[2022-06-07 04:46] LABS: Hematocrit 26.8 VOL% (42.0-52.0); Hemoglobin 8.1 GM/DL (14.0-18.0); Immature Granulocytes % 3.6 %; Immature Granulocytes Absolute 0.34 #; Lymphocytes # 0.3 10*3/uL (1.4-4.0); Lymphocytes % 3.2 % (21.2-54.2); Mean Corpuscular HGB Conc 30.2 GM/DL (32-36); Mean Platelet Volume 9.9 FL (9.6-12.0); Monocytes # 0.2 10*3/uL (0.11-0.8); NRBC # 0.14 10*3/uL; Neutrophils % 91.2 % (38.7-73.9); Platelet Count 273 T/CUMM (130-400); Red Blood Count 3.08 MC/CUMM (3.8-5.5); Red Cell Distribution Width 20.3 % (9.3-17.3); White Blood Count 9.4 T/CUMM (4-12)
[2022-06-07 05:00] LABS: Calcium 8.5 MG/DL (8.5-10.1); Osmolality,Calculated 280.7 MOS/KG (273-304); Potassium 4.5 MMOL/L (3.5-5.1)
[2022-06-07 05:07] LABS: Hypochromia Slight; Lymphocytes 2 % (20-55); Microcytosis Slight; Platelet Estimate Adequate; Total Cells Counted 100
[2022-06-07 05:33] LABS: Arterial Base Excess iSTAT 0 MMOL/L (-2.5-2.5); Arterial Bicarbonate iSTAT 24.8 MMOL/L (20-26); Arterial O2 Saturation iSTAT 93 % (95-100); Arterial PCO2 iSTAT 40 MM HG (35-48); Arterial PO2 iSTAT 68 MM HG (80-95); Arterial Total CO2 iSTAT 26 MMO/L (23-27); Arterial pH iSTAT 7.401 (7.35-7.45)
[2022-06-07] MEDS: LEVOTHYROXINE 100 MCG VIAL IV SCH (06:15)
[2022-06-07] MEDS ORDERED: FUROSEMIDE 40 MG/4 ML VIAL IV ONE (07:13)
[2022-06-07] MEDS: MONTELUKAST 10 MG TABLET PO SCH ×2 (09:16→20:56)
[2022-06-07] MEDS: PANTOPRAZOLE 40 MG TABLET PO SCH (09:17)
[2022-06-07] MEDS: DOCUSATE SODIUM 100 MG CAPSULE PO SCH ×2 (09:17→20:55)
[2022-06-07] MEDS: METOPROLOL TARTRATE 25 MG TABLET PO SCH ×2 (09:17→20:56)
[2022-06-07] MEDS: CHOLECALCIFEROL 5,000 UNIT TABLET PO SCH ×2 (09:18→20:56)
[2022-06-07] MEDS: ASPIRIN EC 81 MG TABLET PO SCH (09:18)
[2022-06-07] MEDS: ATORVASTATIN 80 MG TABLET PO SCH (09:18)
[2022-06-07] MEDS: DEXAMETHASONE 4 MG/1 ML VIAL IV SCH ×3 (09:26→17:28)
[2022-06-07] MEDS: POLYETHYLENE GLYCOL POWDER 17 GM PACK PO SCH (09:30)
[2022-06-07] MEDS: FERRIC GLUCONATE COMPLEX 125 MG in SODIUM CHLORIDE 0.9% 100 ML IV SCH (12:41)
[2022-06-07] MEDS: TAMSULOSIN 0.4 MG CAPSULE PO SCH (20:55)
[2022-06-08] MEDS: HEPARIN 5,000 UNIT/1 ML VIAL SUBCUT SCH ×2 (01:33→13:40)
[2022-06-08] MEDS: DEXAMETHASONE 4 MG/1 ML VIAL IV SCH ×3 (01:33→17:32)
[2022-06-08] MEDS: PIPERACILLIN/TAZOBACTAM 3,375 MG in SODIUM CHLORIDE 0.9% 100 ML IV SCH ×3 (01:34→17:25)
[2022-06-08] MEDS: CLINDAMYCIN INJ 300 MG/50 ML PREMIX IV SCH ×4 (02:40→21:57)
[2022-06-08] MEDS: ALBUTEROL/IPRATROPIUM 3 ML NEB RESP TX SCH ×7 (04:24→23:24)
[2022-06-08 04:53] LABS: Basophils % 0.1 % (0.0-0.8); Hematocrit 28.3 VOL% (42.0-52.0); Hemoglobin 8.6 GM/DL (14.0-18.0); Immature Granulocytes Absolute 0.34 #; Lymphocytes # 0.2 10*3/uL (1.4-4.0); Lymphocytes % 2.1 % (21.2-54.2); Mean Corpuscular HGB Conc 30.4 GM/DL (32-36); Monocytes # 0.2 10*3/uL (0.11-0.8); Monocytes % 2.1 % (1.7-12.7); NRBC # 0.14 10*3/uL; Neutrophils % 92.7 % (38.7-73.9); Platelet Count 283 T/CUMM (130-400); Red Blood Count 3.29 MC/CUMM (3.8-5.5); Red Cell Distribution Width 20.1 % (9.3-17.3); White Blood Count 11.3 T/CUMM (4-12)
[2022-06-08 05:10] LABS: Calcium 8.9 MG/DL (8.5-10.1); Osmolality,Calculated 284.5 MOS/KG (273-304); Potassium 4.3 MMOL/L (3.5-5.1)
[2022-06-08 05:15] LABS: Albumin 2.2 G/DL (3.4-5.0); Bilirubin,Direct 0.1 MG/DL (0.0-0.20); Bilirubin,Indirect 0.4 MG/DL (0.0-1.0); Bilirubin,Total 0.5 MG/DL (0.20-1.00)
[2022-06-08 05:24] LABS: Hypochromia 1+; Lymphocytes 5 % (20-55); Metamyelocytes 1 %; Microcytosis 1+; Nucleated Red Blood Cells 2 (0-5); Polychromasia Slight; Total Cells Counted 100
[2022-06-08 05:25] LABS: Acanthocytes Few; Platelet Estimate Normal
[2022-06-08] MEDS: LEVOTHYROXINE 100 MCG VIAL IV SCH (06:10)
[2022-06-08] MEDS: ATORVASTATIN 80 MG TABLET PO SCH (08:45)
[2022-06-08] MEDS: METOPROLOL TARTRATE 25 MG TABLET PO SCH ×2 (08:45→20:20)
[2022-06-08] MEDS: DOCUSATE SODIUM 100 MG CAPSULE PO SCH ×2 (08:45→20:20)
[2022-06-08] MEDS: ASPIRIN EC 81 MG TABLET PO SCH (08:45)
[2022-06-08] MEDS: CHOLECALCIFEROL 5,000 UNIT TABLET PO SCH ×2 (08:45→20:20)
[2022-06-08] MEDS: MONTELUKAST 10 MG TABLET PO SCH ×2 (08:45→20:20)
[2022-06-08] MEDS: PANTOPRAZOLE 40 MG TABLET PO SCH (08:45)
[2022-06-08] MEDS: POLYETHYLENE GLYCOL POWDER 17 GM PACK PO SCH (08:46)
[2022-06-08] MEDS: FERRIC GLUCONATE COMPLEX 125 MG in SODIUM CHLORIDE 0.9% 100 ML IV SCH (08:46)
[2022-06-08] MEDS: CLORAZEPATE 3.75 MG TABLET PO PRN (12:00)
[2022-06-08] MEDS: TAMSULOSIN 0.4 MG CAPSULE PO SCH (20:20)
[2022-06-08] MEDS: ZALEPLON 5 MG CAPSULE PO PRN (21:57)
[2022-06-09] MEDS: HEPARIN 5,000 UNIT/1 ML VIAL SUBCUT SCH ×2 (00:31→13:51)
[2022-06-09] MEDS: DEXAMETHASONE 4 MG/1 ML VIAL IV SCH ×3 (00:31→17:33)
[2022-06-09] MEDS: PIPERACILLIN/TAZOBACTAM 3,375 MG in SODIUM CHLORIDE 0.9% 100 ML IV SCH ×3 (01:33→17:34)
[2022-06-09] MEDS: ALBUTEROL/IPRATROPIUM 3 ML NEB RESP TX SCH ×6 (03:56→22:55)
[2022-06-09 04:02] LABS: Basophils % 0.1 % (0.0-0.8); Hemoglobin 8.4 GM/DL (14.0-18.0); Immature Granulocytes Absolute 0.33 #; Lymphocytes # 0.2 10*3/uL (1.4-4.0); Lymphocytes % 1.7 % (21.2-54.2); Mean Corpuscular Volume 86.2 FL (87-102); Mean Platelet Volume 10.3 FL (9.6-12.0); Monocytes # 0.2 10*3/uL (0.11-0.8); NRBC # 0.14 10*3/uL; Neutrophils % 93.2 % (38.7-73.9); Platelet Count 245 T/CUMM (130-400); Red Blood Count 3.25 MC/CUMM (3.8-5.5); Red Cell Distribution Width 20.1 % (9.3-17.3); White Blood Count 11.1 T/CUMM (4-12)
[2022-06-09 04:22] LABS: Calcium 8.8 MG/DL (8.5-10.1); Osmolality,Calculated 288.5 MOS/KG (273-304); Potassium 4.7 MMOL/L (3.5-5.1)
[2022-06-09] MEDS: CLINDAMYCIN INJ 300 MG/50 ML PREMIX IV SCH ×4 (04:25→21:19)
[2022-06-09 04:49] LABS: Lymphocytes 1 % (20-55); Total Cells Counted 100
[2022-06-09 04:50] LABS: Platelet Estimate Normal; Polychromasia Slight
[2022-06-09 04:55] LABS: Misc Morphology NORMAL MORPHOLOGY
[2022-06-09] MEDS: LEVOTHYROXINE 100 MCG VIAL IV SCH (06:20)
[2022-06-09] MEDS: CHOLECALCIFEROL 5,000 UNIT TABLET PO SCH ×2 (08:24→21:11)
[2022-06-09] MEDS: METOPROLOL TARTRATE 25 MG TABLET PO SCH ×2 (08:24→21:11)
[2022-06-09] MEDS: MONTELUKAST 10 MG TABLET PO SCH ×2 (08:24→21:11)
[2022-06-09] MEDS: ATORVASTATIN 80 MG TABLET PO SCH (08:24)
[2022-06-09] MEDS: POLYETHYLENE GLYCOL POWDER 17 GM PACK PO SCH (08:25)
[2022-06-09] MEDS: DOCUSATE SODIUM 100 MG CAPSULE PO SCH ×2 (08:25→21:11)
[2022-06-09] MEDS: PANTOPRAZOLE 40 MG TABLET PO SCH (08:25)
[2022-06-09] MEDS: ASPIRIN EC 81 MG TABLET PO SCH (08:25)
[2022-06-09] MEDS: FERRIC GLUCONATE COMPLEX 125 MG in SODIUM CHLORIDE 0.9% 100 ML IV SCH (09:50)
[2022-06-09] MEDS ORDERED: FUROSEMIDE 40 MG/4 ML VIAL IV ONE (10:26)
[2022-06-09 11:09] LABS: Arterial Base Excess iSTAT 3 MMOL/L (-2.5-2.5); Arterial Bicarbonate iSTAT 28.2 MMOL/L (20-26); Arterial O2 Saturation iSTAT 57 % (95-100); Arterial PCO2 iSTAT 48 MM HG (35-48); Arterial PO2 iSTAT 31 MM HG (80-95); Arterial Total CO2 iSTAT 30 MMO/L (23-27)
[2022-06-09 11:10] LABS: Arterial Base Excess iSTAT 2 MMOL/L (-2.5-2.5); Arterial Bicarbonate iSTAT 27.2 MMOL/L (20-26); Arterial O2 Saturation iSTAT 97 % (95-100); Arterial PCO2 iSTAT 42 MM HG (35-48); Arterial PO2 iSTAT 92 MM HG (80-95); Arterial Total CO2 iSTAT 28 MMO/L (23-27); Arterial pH iSTAT 7.421 (7.35-7.45)
[2022-06-09] MEDS ORDERED: LACTULOSE 20 GM/30 ML UDCUP PO SCH (12:00)
[2022-06-09] MEDS: INSULIN LISPRO 100 UNIT/ML SUBCUT SCH ×2 (15:34→21:10)
[2022-06-09] MEDS: FLUCONAZOLE INJ 200 MG/100 ML PREMIX IV SCH (16:33)
[2022-06-09] MEDS: TAMSULOSIN 0.4 MG CAPSULE PO SCH (21:11)
[2022-06-10] MEDS: CLORAZEPATE 3.75 MG TABLET PO PRN ×2 (00:01→16:09)
[2022-06-10] MEDS: DEXAMETHASONE 4 MG/1 ML VIAL IV SCH ×3 (01:08→17:13)
[2022-06-10] MEDS: HEPARIN 5,000 UNIT/1 ML VIAL SUBCUT SCH ×2 (01:08→12:06)
[2022-06-10] MEDS: PIPERACILLIN/TAZOBACTAM 3,375 MG in SODIUM CHLORIDE 0.9% 100 ML IV SCH ×3 (01:10→17:13)
[2022-06-10] MEDS: CLINDAMYCIN INJ 300 MG/50 ML PREMIX IV SCH ×4 (04:09→21:28)
[2022-06-10] MEDS: ALBUTEROL/IPRATROPIUM 3 ML NEB RESP TX SCH ×6 (04:20→23:30)
[2022-06-10 06:00] LABS: Basophils % 0.1 % (0.0-0.8); Hematocrit 27.3 VOL% (42.0-52.0); Hemoglobin 8.4 GM/DL (14.0-18.0); Immature Granulocytes % 4.9 %; Immature Granulocytes Absolute 0.58 #; Lymphocytes # 0.3 10*3/uL (1.4-4.0); Lymphocytes % 2.3 % (21.2-54.2); Mean Corpuscular HGB Conc 30.8 GM/DL (32-36); Mean Corpuscular Volume 85.6 FL (87-102); Mean Platelet Volume 10.3 FL (9.6-12.0); Monocytes # 0.2 10*3/uL (0.11-0.8); Monocytes % 1.4 % (1.7-12.7); Neutrophils % 91.3 % (38.7-73.9); Platelet Count 246 T/CUMM (130-400); Red Blood Count 3.19 MC/CUMM (3.8-5.5); Red Cell Distribution Width 20.4 % (9.3-17.3)
[2022-06-10 06:26] LABS: Calcium 8.7 MG/DL (8.5-10.1); Osmolality,Calculated 293.3 MOS/KG (273-304); Potassium 4.5 MMOL/L (3.5-5.1)
[2022-06-10] MEDS: LEVOTHYROXINE 100 MCG VIAL IV SCH (06:34)
[2022-06-10 06:44] LABS: Anisocytosis 1+; Band Neutrophils 1 % (0-10); Lymphocytes 1 % (20-55); Nucleated Red Blood Cells 1 (0-5); Platelet Estimate Normal; Total Cells Counted 100
[2022-06-10 06:45] LABS: Burr Cells Few; Ovalocytes Few; Poikilocytosis Slight; Tear Drop Cells Few
[2022-06-10] MEDS: INSULIN LISPRO 100 UNIT/ML SUBCUT SCH ×4 (07:19→21:38)
[2022-06-10] MEDS: ATORVASTATIN 80 MG TABLET PO SCH (08:38)
[2022-06-10] MEDS: PANTOPRAZOLE 40 MG TABLET PO SCH (08:38)
[2022-06-10] MEDS: CHOLECALCIFEROL 5,000 UNIT TABLET PO SCH ×2 (08:38→21:24)
[2022-06-10] MEDS: METOPROLOL TARTRATE 25 MG TABLET PO SCH ×2 (08:38→21:28)
[2022-06-10] MEDS: MONTELUKAST 10 MG TABLET PO SCH ×2 (08:39→21:25)
[2022-06-10] MEDS: DOCUSATE SODIUM 100 MG CAPSULE PO SCH ×2 (08:39→21:24)
[2022-06-10] MEDS: POLYETHYLENE GLYCOL POWDER 17 GM PACK PO SCH (08:39)
[2022-06-10] MEDS: ASPIRIN EC 81 MG TABLET PO SCH (08:39)
[2022-06-10] MEDS ORDERED: FUROSEMIDE 40 MG/4 ML VIAL IV ONE (09:22)
[2022-06-10] MEDS: FERRIC GLUCONATE COMPLEX 125 MG in SODIUM CHLORIDE 0.9% 100 ML IV SCH (09:24)
[2022-06-10] MEDS: FLUCONAZOLE INJ 200 MG/100 ML PREMIX IV SCH (17:13)
[2022-06-10] MEDS: TAMSULOSIN 0.4 MG CAPSULE PO SCH (21:24)
[2022-06-10] MEDS: ZOLPIDEM 5 MG TABLET PO SCH (23:20)
[2022-06-11] MEDS: DEXAMETHASONE 4 MG/1 ML VIAL IV SCH ×3 (01:17→17:08)
[2022-06-11] MEDS: PIPERACILLIN/TAZOBACTAM 3,375 MG in SODIUM CHLORIDE 0.9% 100 ML IV SCH (01:20)
[2022-06-11] MEDS: HEPARIN 5,000 UNIT/1 ML VIAL SUBCUT SCH ×2 (01:21→14:30)
[2022-06-11] MEDS: CLINDAMYCIN INJ 300 MG/50 ML PREMIX IV SCH (03:21)
[2022-06-11] MEDS: ALBUTEROL/IPRATROPIUM 3 ML NEB RESP TX SCH ×6 (03:45→22:31)
[2022-06-11 05:16] LABS: Basophils % 0.1 % (0.0-0.8); Hematocrit 27.2 VOL% (42.0-52.0); Hemoglobin 8.4 GM/DL (14.0-18.0); Immature Granulocytes % 2.8 %; Immature Granulocytes Absolute 0.36 #; Lymphocytes # 0.3 10*3/uL (1.4-4.0); Lymphocytes % 2.3 % (21.2-54.2); Mean Corpuscular HGB Conc 30.9 GM/DL (32-36); Mean Corpuscular Volume 86.3 FL (87-102); Mean Platelet Volume 10.2 FL (9.6-12.0); Monocytes # 0.3 10*3/uL (0.11-0.8); Monocytes % 2.1 % (1.7-12.7); NRBC # 0.12 10*3/uL; Neutrophils % 92.7 % (38.7-73.9); Platelet Count 209 T/CUMM (130-400); Red Blood Count 3.15 MC/CUMM (3.8-5.5); Red Cell Distribution Width 20.8 % (9.3-17.3); White Blood Count 12.8 T/CUMM (4-12)
[2022-06-11 05:35] LABS: Hypochromia Slight; Lymphocytes 4 % (20-55); Microcytosis Slight; Nucleated Red Blood Cells 2 (0-5); Platelet Estimate Adequate; Total Cells Counted 100
[2022-06-11 05:56] LABS: Calcium 8.6 MG/DL (8.5-10.1); Osmolality,Calculated 291.4 MOS/KG (273-304); Potassium 4.2 MMOL/L (3.5-5.1)
[2022-06-11] MEDS: LEVOTHYROXINE 100 MCG VIAL IV SCH (06:16)
[2022-06-11] MEDS: INSULIN LISPRO 100 UNIT/ML SUBCUT SCH ×4 (07:27→21:27)
[2022-06-11] MEDS: ASPIRIN EC 81 MG TABLET PO SCH (09:07)
[2022-06-11] MEDS: FERRIC GLUCONATE COMPLEX 125 MG in SODIUM CHLORIDE 0.9% 100 ML IV SCH (09:08)
[2022-06-11] MEDS: PANTOPRAZOLE 40 MG TABLET PO SCH (09:09)
[2022-06-11] MEDS: METOPROLOL TARTRATE 25 MG TABLET PO SCH ×2 (09:09→21:13)
[2022-06-11] MEDS: MONTELUKAST 10 MG TABLET PO SCH ×2 (09:09→21:13)
[2022-06-11] MEDS: ATORVASTATIN 80 MG TABLET PO SCH (09:09)
[2022-06-11] MEDS: CHOLECALCIFEROL 5,000 UNIT TABLET PO SCH ×2 (09:10→21:14)
[2022-06-11] MEDS: DOCUSATE SODIUM 100 MG CAPSULE PO SCH ×2 (09:23→21:14)
[2022-06-11] MEDS: POLYETHYLENE GLYCOL POWDER 17 GM PACK PO SCH (10:17)
[2022-06-11] MEDS: SUCRALFATE 1 GM TABLET PO SCH ×3 (11:59→22:18)
[2022-06-11] MEDS: FLUCONAZOLE 200 MG TABLET PO SCH (16:28)
[2022-06-11] MEDS: ASCORBIC ACID 500 MG TABLET PO SCH (21:13)
[2022-06-11] MEDS: TAMSULOSIN 0.4 MG CAPSULE PO SCH (21:14)
[2022-06-11] MEDS: ZOLPIDEM 5 MG TABLET PO SCH (21:14)
[2022-06-12] MEDS: HEPARIN 5,000 UNIT/1 ML VIAL SUBCUT SCH ×2 (00:56→13:31)
[2022-06-12] MEDS: DEXAMETHASONE 4 MG/1 ML VIAL IV SCH ×3 (00:56→17:05)
[2022-06-12] MEDS: ALBUTEROL/IPRATROPIUM 3 ML NEB RESP TX SCH ×6 (03:23→23:51)
[2022-06-12 05:34] LABS: Basophils % 0.1 % (0.0-0.8); Hematocrit 29.3 VOL% (42.0-52.0); Hemoglobin 8.9 GM/DL (14.0-18.0); Immature Granulocytes % 5.1 %; Immature Granulocytes Absolute 0.71 #; Lymphocytes # 0.4 10*3/uL (1.4-4.0); Lymphocytes % 2.5 % (21.2-54.2); Mean Corpuscular HGB Conc 30.4 GM/DL (32-36); Mean Corpuscular Volume 87.7 FL (87-102); Mean Platelet Volume 10.7 FL (9.6-12.0); Monocytes # 0.3 10*3/uL (0.11-0.8); Monocytes % 1.9 % (1.7-12.7); NRBC # 0.34 10*3/uL; Neutrophils % 90.4 % (38.7-73.9); Platelet Count 226 T/CUMM (130-400); Red Blood Count 3.34 MC/CUMM (3.8-5.5); Red Cell Distribution Width 21.3 % (9.3-17.3); White Blood Count 13.9 T/CUMM (4-12)
[2022-06-12 05:47] LABS: Calcium 8.9 MG/DL (8.5-10.1); Osmolality,Calculated 286.5 MOS/KG (273-304); Potassium 4.3 MMOL/L (3.5-5.1)
[2022-06-12 06:02] LABS: Alanine Aminotransferase 54 U/L (16-61); Albumin 2.3 G/DL (3.4-5.0); Alkaline Phosphatase 104 U/L (45-117); Aspartate Amino Transferase 37 U/L (0-37); Band Neutrophils 1 % (0-10); Bilirubin,Direct < 0.100 MG/DL (0.0-0.20); Bilirubin,Indirect 0.3 MG/DL (0.0-1.0); Bilirubin,Total < 0.39 MG/DL (0.20-1.00); Hypochromia Slight; Lymphocytes 3 % (20-55); Microcytosis Slight; Nucleated Red Blood Cells 5 (0-5); Platelet Estimate Adequate; Total Cells Counted 100
[2022-06-12] MEDS: LEVOTHYROXINE 100 MCG VIAL IV SCH (06:29)
[2022-06-12] MEDS: INSULIN LISPRO 100 UNIT/ML SUBCUT SCH ×4 (08:38→20:53)
[2022-06-12] MEDS: SUCRALFATE 1 GM TABLET PO SCH ×4 (08:50→20:54)
[2022-06-12] MEDS: FLUCONAZOLE 200 MG TABLET PO SCH (09:10)
[2022-06-12] MEDS: FERRIC GLUCONATE COMPLEX 125 MG in SODIUM CHLORIDE 0.9% 100 ML IV SCH (09:10)
[2022-06-12] MEDS: DOCUSATE SODIUM 100 MG CAPSULE PO SCH ×2 (09:10→20:53)
[2022-06-12] MEDS: ASPIRIN EC 81 MG TABLET PO SCH (09:10)
[2022-06-12] MEDS: PANTOPRAZOLE 40 MG TABLET PO SCH (09:11)
[2022-06-12] MEDS: ATORVASTATIN 80 MG TABLET PO SCH (09:11)
[2022-06-12] MEDS: MONTELUKAST 10 MG TABLET PO SCH ×2 (09:11→20:54)
[2022-06-12] MEDS: METOPROLOL TARTRATE 25 MG TABLET PO SCH ×2 (09:11→20:53)
[2022-06-12] MEDS: CHOLECALCIFEROL 5,000 UNIT TABLET PO SCH ×2 (09:12→20:54)
[2022-06-12] MEDS: ASCORBIC ACID 500 MG TABLET PO SCH ×2 (09:12→20:54)
[2022-06-12] MEDS ORDERED: SKIN HEALING OINT (AQUAPHOR) 50 GM TUBE TOP PRN (14:53)
[2022-06-12] MEDS: ZOLPIDEM 5 MG TABLET PO SCH (20:53)
[2022-06-12] MEDS: TAMSULOSIN 0.4 MG CAPSULE PO SCH (20:54)
[2022-06-13] MEDS: DEXAMETHASONE 4 MG/1 ML VIAL IV SCH ×3 (01:31→16:40)
[2022-06-13] MEDS: HEPARIN 5,000 UNIT/1 ML VIAL SUBCUT SCH ×2 (01:31→12:06)
[2022-06-13] MEDS: ALBUTEROL/IPRATROPIUM 3 ML NEB RESP TX SCH ×6 (03:30→23:30)
[2022-06-13 05:13] LABS: Basophils % 0.1 % (0.0-0.8); Hematocrit 27.5 VOL% (42.0-52.0); Hemoglobin 8.1 GM/DL (14.0-18.0); Immature Granulocytes % 5.4 %; Immature Granulocytes Absolute 0.84 #; Lymphocytes # 0.4 10*3/uL (1.4-4.0); Lymphocytes % 2.7 % (21.2-54.2); Mean Corpuscular HGB Conc 29.5 GM/DL (32-36); Mean Corpuscular Volume 89.3 FL (87-102); Mean Platelet Volume 10.5 FL (9.6-12.0); Monocytes # 0.3 10*3/uL (0.11-0.8); Monocytes % 1.9 % (1.7-12.7); NRBC # 0.45 10*3/uL; Neutrophils % 89.9 % (38.7-73.9); Platelet Count 203 T/CUMM (130-400); Red Blood Count 3.08 MC/CUMM (3.8-5.5); Red Cell Distribution Width 22.1 % (9.3-17.3); White Blood Count 15.7 T/CUMM (4-12)
[2022-06-13 05:27] LABS: Calcium 8.6 MG/DL (8.5-10.1); Osmolality,Calculated 292.3 MOS/KG (273-304); Potassium 4.7 MMOL/L (3.5-5.1)
[2022-06-13 05:38] LABS: Alanine Aminotransferase 52 U/L (16-61); Albumin 2.2 G/DL (3.4-5.0); Alkaline Phosphatase 105 U/L (45-117); Aspartate Amino Transferase 41 U/L (0-37); Bilirubin,Direct < 0.100 MG/DL (0.0-0.20); Bilirubin,Indirect 0.3 MG/DL (0.0-1.0); Bilirubin,Total < 0.39 MG/DL (0.20-1.00); Total Protein 5.3 G/DL (6.4-8.2)
[2022-06-13 05:56] LABS: Anisocytosis 2+; Lymphocytes 9 % (20-55); Nucleated Red Blood Cells 2 (0-5); Platelet Estimate Normal; Poikilocytosis 2+; Total Cells Counted 100
[2022-06-13] MEDS: LEVOTHYROXINE 100 MCG TABLET PO SCH (06:54)
[2022-06-13] MEDS: CHOLECALCIFEROL 5,000 UNIT TABLET PO SCH ×2 (09:14→21:36)
[2022-06-13] MEDS: SUCRALFATE 1 GM TABLET PO SCH ×4 (09:14→21:35)
[2022-06-13] MEDS: ATORVASTATIN 80 MG TABLET PO SCH (09:14)
[2022-06-13] MEDS: ASCORBIC ACID 500 MG TABLET PO SCH ×2 (09:14→21:35)
[2022-06-13] MEDS: METOPROLOL TARTRATE 25 MG TABLET PO SCH ×2 (09:15→21:36)
[2022-06-13] MEDS: MONTELUKAST 10 MG TABLET PO SCH ×2 (09:15→21:36)
[2022-06-13] MEDS: ASPIRIN EC 81 MG TABLET PO SCH (09:15)
[2022-06-13] MEDS: PANTOPRAZOLE 40 MG TABLET PO SCH (09:15)
[2022-06-13] MEDS: DOCUSATE SODIUM 100 MG CAPSULE PO SCH ×2 (09:15→21:47)
[2022-06-13] MEDS: FLUCONAZOLE 200 MG TABLET PO SCH (09:15)
[2022-06-13] MEDS: FERRIC GLUCONATE COMPLEX 125 MG in SODIUM CHLORIDE 0.9% 100 ML IV SCH (09:16)
[2022-06-13] MEDS: INSULIN LISPRO 100 UNIT/ML SUBCUT SCH ×4 (09:16→21:36)
[2022-06-13] MEDS: CLINDAMYCIN INJ 300 MG/50 ML PREMIX IV SCH ×2 (10:40→17:28)
[2022-06-13] MEDS: TAMSULOSIN 0.4 MG CAPSULE PO SCH (21:35)
[2022-06-13] MEDS: ZOLPIDEM 5 MG TABLET PO SCH (21:36)
[2022-06-14] MEDS: CLINDAMYCIN INJ 300 MG/50 ML PREMIX IV SCH ×3 (01:14→17:36)
[2022-06-14] MEDS: DEXAMETHASONE 4 MG/1 ML VIAL IV SCH ×3 (01:14→16:46)
[2022-06-14] MEDS: HEPARIN 5,000 UNIT/1 ML VIAL SUBCUT SCH ×2 (01:36→13:57)
[2022-06-14] MEDS: ALBUTEROL/IPRATROPIUM 3 ML NEB RESP TX SCH ×6 (03:30→22:58)
[2022-06-14 05:58] LABS: Basophils % 0.2 % (0.0-0.8); Hematocrit 28.9 VOL% (42.0-52.0); Hemoglobin 8.8 GM/DL (14.0-18.0); Immature Granulocytes % 4.3 %; Immature Granulocytes Absolute 0.73 #; Lymphocytes # 0.3 10*3/uL (1.4-4.0); Mean Corpuscular HGB Conc 30.4 GM/DL (32-36); Mean Platelet Volume 11.7 FL (9.6-12.0); Monocytes # 0.4 10*3/uL (0.11-0.8); Monocytes % 2.1 % (1.7-12.7); NRBC # 0.53 10*3/uL; Neutrophils % 91.4 % (38.7-73.9); Platelet Count 215 T/CUMM (130-400); Red Blood Count 3.21 MC/CUMM (3.8-5.5); Red Cell Distribution Width 22.5 % (9.3-17.3); White Blood Count 17.1 T/CUMM (4-12)
[2022-06-14 06:11] LABS: Calcium 9.1 MG/DL (8.5-10.1); Osmolality,Calculated 290.1 MOS/KG (273-304); Potassium 4.7 MMOL/L (3.5-5.1)
[2022-06-14] MEDS: LEVOTHYROXINE 100 MCG TABLET PO SCH (06:22)
[2022-06-14 06:23] LABS: Hypochromia Slight; Lymphocytes 3 % (20-55); Microcytosis Slight; Nucleated Red Blood Cells 7 (0-5); Platelet Estimate Adequate; Total Cells Counted 100
[2022-06-14] MEDS: INSULIN LISPRO 100 UNIT/ML SUBCUT SCH ×4 (07:30→20:44)
[2022-06-14] MEDS: FERRIC GLUCONATE COMPLEX 125 MG in SODIUM CHLORIDE 0.9% 100 ML IV SCH (08:48)
[2022-06-14] MEDS: SUCRALFATE 1 GM TABLET PO SCH ×4 (08:49→20:46)
[2022-06-14] MEDS: ATORVASTATIN 80 MG TABLET PO SCH (08:49)
[2022-06-14] MEDS: MONTELUKAST 10 MG TABLET PO SCH ×2 (08:50→20:45)
[2022-06-14] MEDS: PANTOPRAZOLE 40 MG TABLET PO SCH (08:50)
[2022-06-14] MEDS: ASCORBIC ACID 500 MG TABLET PO SCH ×2 (08:50→20:45)
[2022-06-14] MEDS: CHOLECALCIFEROL 5,000 UNIT TABLET PO SCH ×2 (08:50→20:46)
[2022-06-14] MEDS: ASPIRIN EC 81 MG TABLET PO SCH (08:50)
[2022-06-14] MEDS: FLUCONAZOLE 200 MG TABLET PO SCH (08:50)
[2022-06-14] MEDS: METOPROLOL TARTRATE 25 MG TABLET PO SCH ×2 (08:50→20:46)
[2022-06-14] MEDS: DOCUSATE SODIUM 100 MG CAPSULE PO SCH ×2 (09:02→20:47)
[2022-06-14] MEDS: TAMSULOSIN 0.4 MG CAPSULE PO SCH (20:45)
[2022-06-14] MEDS: ZOLPIDEM 5 MG TABLET PO SCH (20:46)
[2022-06-15] MEDS: CLINDAMYCIN INJ 300 MG/50 ML PREMIX IV SCH ×3 (01:10→17:14)
[2022-06-15] MEDS: DEXAMETHASONE 4 MG/1 ML VIAL IV SCH ×3 (01:10→17:14)
[2022-06-15] MEDS: HEPARIN 5,000 UNIT/1 ML VIAL SUBCUT SCH ×2 (01:11→12:50)
[2022-06-15] MEDS: ALBUTEROL/IPRATROPIUM 3 ML NEB RESP TX SCH ×6 (03:00→23:21)
[2022-06-15 05:07] LABS: Basophils % 0.2 % (0.0-0.8); Hematocrit 29.7 VOL% (42.0-52.0); Hemoglobin 8.7 GM/DL (14.0-18.0); Immature Granulocytes % 3.6 %; Lymphocytes # 0.3 10*3/uL (1.4-4.0); Lymphocytes % 1.8 % (21.2-54.2); Mean Corpuscular HGB Conc 29.3 GM/DL (32-36); Mean Corpuscular Volume 90.3 FL (87-102); Mean Platelet Volume 12.4 FL (9.6-12.0); Monocytes # 0.3 10*3/uL (0.11-0.8); Monocytes % 1.7 % (1.7-12.7); Neutrophils % 92.7 % (38.7-73.9); Platelet Count 202 T/CUMM (130-400); Red Blood Count 3.29 MC/CUMM (3.8-5.5); Red Cell Distribution Width 23.1 % (9.3-17.3); White Blood Count 16.6 T/CUMM (4-12)
[2022-06-15 05:21] LABS: Calcium 8.6 MG/DL (8.5-10.1); Osmolality,Calculated 291.1 MOS/KG (273-304); Potassium 4.5 MMOL/L (3.5-5.1)
[2022-06-15 05:44] LABS: Lymphocytes 1 % (20-55); Platelet Estimate Adequate; Total Cells Counted 100
[2022-06-15] MEDS: LEVOTHYROXINE 100 MCG TABLET PO SCH (06:14)
[2022-06-15] MEDS: SUCRALFATE 1 GM TABLET PO SCH ×4 (08:12→21:33)
[2022-06-15] MEDS: ASPIRIN EC 81 MG TABLET PO SCH (08:12)
[2022-06-15] MEDS: DOCUSATE SODIUM 100 MG CAPSULE PO SCH ×2 (08:12→21:33)
[2022-06-15] MEDS: INSULIN LISPRO 100 UNIT/ML SUBCUT SCH ×4 (08:12→21:36)
[2022-06-15] MEDS: METOPROLOL TARTRATE 25 MG TABLET PO SCH ×2 (08:13→21:33)
[2022-06-15] MEDS: ATORVASTATIN 80 MG TABLET PO SCH (08:13)
[2022-06-15] MEDS: PANTOPRAZOLE 40 MG TABLET PO SCH (08:13)
[2022-06-15] MEDS: ASCORBIC ACID 500 MG TABLET PO SCH ×2 (08:13→21:33)
[2022-06-15] MEDS: CHOLECALCIFEROL 5,000 UNIT TABLET PO SCH ×2 (08:13→21:33)
[2022-06-15] MEDS: FLUCONAZOLE 200 MG TABLET PO SCH (08:13)
[2022-06-15] MEDS: MONTELUKAST 10 MG TABLET PO SCH ×2 (08:13→21:33)
[2022-06-15] MEDS: ZOLPIDEM 5 MG TABLET PO SCH (21:33)
[2022-06-15] MEDS: TAMSULOSIN 0.4 MG CAPSULE PO SCH (21:33)
[2022-06-15] MEDS: INSULIN GLARGINE 100 UNIT/ML SUBCUT SCH (21:36)
[2022-06-16] MEDS: HEPARIN 5,000 UNIT/1 ML VIAL SUBCUT SCH ×2 (02:42→14:28)
[2022-06-16] MEDS: DEXAMETHASONE 4 MG/1 ML VIAL IV SCH ×3 (02:43→18:27)
[2022-06-16] MEDS: CLINDAMYCIN INJ 300 MG/50 ML PREMIX IV SCH ×3 (02:50→18:15)
[2022-06-16] MEDS: ALBUTEROL/IPRATROPIUM 3 ML NEB RESP TX SCH ×6 (03:17→23:47)
[2022-06-16 04:14] LABS: Basophils % 0.1 % (0.0-0.8); Hematocrit 28.7 VOL% (42.0-52.0); Hemoglobin 8.7 GM/DL (14.0-18.0); Immature Granulocytes % 3.1 %; Immature Granulocytes Absolute 0.53 #; Lymphocytes # 0.3 10*3/uL (1.4-4.0); Lymphocytes % 1.7 % (21.2-54.2); Mean Corpuscular HGB Conc 30.3 GM/DL (32-36); Mean Platelet Volume 10.9 FL (9.6-12.0); Monocytes # 0.4 10*3/uL (0.11-0.8); Monocytes % 2.5 % (1.7-12.7); NRBC # 0.33 10*3/uL; Neutrophils % 92.6 % (38.7-73.9); Platelet Count 175 T/CUMM (130-400); Red Blood Count 3.19 MC/CUMM (3.8-5.5); Red Cell Distribution Width 23.4 % (9.3-17.3)
[2022-06-16 04:33] LABS: Calcium 8.5 MG/DL (8.5-10.1); Osmolality,Calculated 288.4 MOS/KG (273-304); Potassium 4.5 MMOL/L (3.5-5.1)
[2022-06-16 04:49] LABS: Lymphocytes 1 % (20-55); Nucleated Red Blood Cells 1 (0-5); Total Cells Counted 100
[2022-06-16 04:50] LABS: Anisocytosis 1+; Hypochromia Slight; Microcytosis 1+; Polychromasia Slight
[2022-06-16 04:51] LABS: Platelet Estimate Adequate
[2022-06-16] MEDS: LEVOTHYROXINE 100 MCG TABLET PO SCH (06:40)
[2022-06-16] MEDS: INSULIN LISPRO 100 UNIT/ML SUBCUT SCH ×4 (08:44→20:33)
[2022-06-16] MEDS: ATORVASTATIN 80 MG TABLET PO SCH (08:44)
[2022-06-16] MEDS: PANTOPRAZOLE 40 MG TABLET PO SCH (08:45)
[2022-06-16] MEDS: SUCRALFATE 1 GM TABLET PO SCH ×4 (08:45→20:33)
[2022-06-16] MEDS: METOPROLOL TARTRATE 25 MG TABLET PO SCH ×2 (08:45→20:33)
[2022-06-16] MEDS: ASCORBIC ACID 500 MG TABLET PO SCH ×2 (08:45→20:33)
[2022-06-16] MEDS: CHOLECALCIFEROL 5,000 UNIT TABLET PO SCH ×2 (08:45→20:33)
[2022-06-16] MEDS: ASPIRIN EC 81 MG TABLET PO SCH (08:45)
[2022-06-16] MEDS: MONTELUKAST 10 MG TABLET PO SCH ×2 (08:45→20:33)
[2022-06-16] MEDS: DOCUSATE SODIUM 100 MG CAPSULE PO SCH ×2 (08:45→20:33)
[2022-06-16] MEDS: FLUCONAZOLE 200 MG TABLET PO SCH (08:45)
[2022-06-16] MEDS ORDERED: LORazepam 2 MG/1 ML VIAL IV ONE (09:40)
[2022-06-16 09:49] LABS: Arterial Base Excess iSTAT 0 MMOL/L (-2.5-2.5); Arterial Bicarbonate iSTAT 24.1 MMOL/L (20-26); Arterial O2 Saturation iSTAT 90 % (95-100); Arterial PCO2 iSTAT 36 MM HG (35-48); Arterial PO2 iSTAT 56 MM HG (80-95); Arterial Total CO2 iSTAT 25 MMO/L (23-27); Arterial pH iSTAT 7.439 (7.35-7.45)
[2022-06-16] MEDS ORDERED: LORazepam 1 MG TABLET PO ONE (10:30)
[2022-06-16] MEDS: TAMSULOSIN 0.4 MG CAPSULE PO SCH (20:33)
[2022-06-16] MEDS: INSULIN GLARGINE 100 UNIT/ML SUBCUT SCH (20:33)
[2022-06-16] MEDS: ZOLPIDEM 5 MG TABLET PO SCH (20:33)
[2022-06-16] MEDS: LORazepam 1 MG TABLET PO PRN (20:42)
[2022-06-17] MEDS: HEPARIN 5,000 UNIT/1 ML VIAL SUBCUT SCH ×2 (01:52→12:04)
[2022-06-17] MEDS: CLINDAMYCIN INJ 300 MG/50 ML PREMIX IV SCH ×3 (01:53→18:40)
[2022-06-17] MEDS: DEXAMETHASONE 4 MG/1 ML VIAL IV SCH ×3 (01:53→17:49)
[2022-06-17] MEDS: ALBUTEROL/IPRATROPIUM 3 ML NEB RESP TX SCH ×6 (03:29→23:40)
[2022-06-17 04:32] LABS: Basophils % 0.1 % (0.0-0.8); Hematocrit 31.6 VOL% (42.0-52.0); Hemoglobin 9.6 GM/DL (14.0-18.0); Immature Granulocytes % 3.3 %; Immature Granulocytes Absolute 0.55 #; Lymphocytes # 0.3 10*3/uL (1.4-4.0); Lymphocytes % 1.6 % (21.2-54.2); Mean Corpuscular HGB Conc 30.4 GM/DL (32-36); Mean Corpuscular Volume 90.8 FL (87-102); Monocytes # 0.5 10*3/uL (0.11-0.8); Monocytes % 2.7 % (1.7-12.7); NRBC # 0.27 10*3/uL; Neutrophils % 92.3 % (38.7-73.9); Platelet Count 160 T/CUMM (130-400); Red Blood Count 3.48 MC/CUMM (3.8-5.5); Red Cell Distribution Width 24.3 % (9.3-17.3); White Blood Count 16.6 T/CUMM (4-12)
[2022-06-17 04:53] LABS: Calcium 8.6 MG/DL (8.5-10.1); Osmolality,Calculated 289.3 MOS/KG (273-304); Potassium 4.5 MMOL/L (3.5-5.1)
[2022-06-17 05:03] LABS: Hypochromia Slight; Lymphocytes 2 % (20-55); Nucleated Red Blood Cells 2 (0-5); Polychromasia Slight; Total Cells Counted 100
[2022-06-17 05:04] LABS: Anisocytosis 1+; Microcytosis 1+; Tear Drop Cells Slight
[2022-06-17 05:05] LABS: Acanthocytes Few; Platelet Estimate Adequate
[2022-06-17] MEDS: LEVOTHYROXINE 100 MCG TABLET PO SCH (06:06)
[2022-06-17] MEDS: DOCUSATE SODIUM 100 MG CAPSULE PO SCH ×2 (08:32→20:40)
[2022-06-17] MEDS: SUCRALFATE 1 GM TABLET PO SCH ×4 (08:32→20:39)
[2022-06-17] MEDS: INSULIN LISPRO 100 UNIT/ML SUBCUT SCH ×4 (08:32→20:53)
[2022-06-17] MEDS: ATORVASTATIN 80 MG TABLET PO SCH (08:32)
[2022-06-17] MEDS: PANTOPRAZOLE 40 MG TABLET PO SCH (08:32)
[2022-06-17] MEDS: METOPROLOL TARTRATE 25 MG TABLET PO SCH ×2 (08:32→20:41)
[2022-06-17] MEDS: MONTELUKAST 10 MG TABLET PO SCH ×2 (08:32→20:40)
[2022-06-17] MEDS: CHOLECALCIFEROL 5,000 UNIT TABLET PO SCH ×2 (08:33→20:41)
[2022-06-17] MEDS: FLUCONAZOLE 200 MG TABLET PO SCH (08:33)
[2022-06-17] MEDS: ASPIRIN EC 81 MG TABLET PO SCH (08:33)
[2022-06-17] MEDS: ASCORBIC ACID 500 MG TABLET PO SCH ×2 (08:33→20:41)
[2022-06-17] MEDS: LORazepam 1 MG TABLET PO PRN ×2 (10:10→19:46)
[2022-06-17 10:46] LABS: Arterial Base Excess iSTAT -4 MMOL/L (-2.5-2.5); Arterial Bicarbonate iSTAT 21.5 MMOL/L (20-26); Arterial O2 Saturation iSTAT 89 % (95-100); Arterial PCO2 iSTAT 40 MM HG (35-48); Arterial PO2 iSTAT 60 MM HG (80-95); Arterial Total CO2 iSTAT 23 MMO/L (23-27); Arterial pH iSTAT 7.339 (7.35-7.45)
[2022-06-17] MEDS ORDERED: METOPROLOL TARTRATE 5 MG/5 ML VIAL IV ONE (20:04)
[2022-06-17] MEDS: ZOLPIDEM 5 MG TABLET PO SCH (20:39)
[2022-06-17] MEDS: TAMSULOSIN 0.4 MG CAPSULE PO SCH (20:40)
[2022-06-17] MEDS: INSULIN GLARGINE 100 UNIT/ML SUBCUT SCH (20:53)
[2022-06-18] MEDS: HEPARIN 5,000 UNIT/1 ML VIAL SUBCUT SCH ×2 (01:30→12:54)
[2022-06-18] MEDS: DEXAMETHASONE 4 MG/1 ML VIAL IV SCH ×3 (02:20→18:18)
[2022-06-18] MEDS: CLINDAMYCIN INJ 300 MG/50 ML PREMIX IV SCH ×3 (02:20→18:23)
[2022-06-18] MEDS: ALBUTEROL/IPRATROPIUM 3 ML NEB RESP TX SCH ×6 (04:20→22:50)
[2022-06-18 04:34] LABS: Arterial Base Excess iSTAT 1 MMOL/L (-2.5-2.5); Arterial Bicarbonate iSTAT 25.3 MMOL/L (20-26); Arterial O2 Saturation iSTAT 89 % (95-100); Arterial PCO2 iSTAT 39 MM HG (35-48); Arterial PO2 iSTAT 56 MM HG (80-95); Arterial Total CO2 iSTAT 26 MMO/L (23-27)
[2022-06-18 04:50] LABS: Basophils % 0.1 % (0.0-0.8); Hematocrit 31.7 VOL% (42.0-52.0); Hemoglobin 9.8 GM/DL (14.0-18.0); Immature Granulocytes % 2.3 %; Immature Granulocytes Absolute 0.36 #; Lymphocytes # 0.2 10*3/uL (1.4-4.0); Lymphocytes % 1.2 % (21.2-54.2); Mean Corpuscular HGB Conc 30.9 GM/DL (32-36); Mean Corpuscular Volume 90.1 FL (87-102); Mean Platelet Volume 12.2 FL (9.6-12.0); Monocytes # 0.5 10*3/uL (0.11-0.8); Monocytes % 3.1 % (1.7-12.7); NRBC # 0.19 10*3/uL; Neutrophils % 93.3 % (38.7-73.9); Platelet Count 167 T/CUMM (130-400); Red Blood Count 3.52 MC/CUMM (3.8-5.5); Red Cell Distribution Width 24.5 % (9.3-17.3); White Blood Count 15.7 T/CUMM (4-12)
[2022-06-18 05:11] LABS: Osmolality,Calculated 291.1 MOS/KG (273-304); Potassium 4.5 MMOL/L (3.5-5.1)
[2022-06-18] MEDS: LORazepam 1 MG TABLET PO PRN ×2 (05:19→20:39)
[2022-06-18 05:20] LABS: Acanthocytes Few; Lymphocytes 3 % (20-55); Microcytosis 1+; Nucleated Red Blood Cells 1 (0-5); Total Cells Counted 100
[2022-06-18 05:21] LABS: Polychromasia Slight
[2022-06-18 05:22] LABS: Hypochromia Slight
[2022-06-18 05:23] LABS: Burr Cells Slight; Platelet Estimate Adequate
[2022-06-18] MEDS: LEVOTHYROXINE 100 MCG TABLET PO SCH (06:20)
[2022-06-18] MEDS: SUCRALFATE 1 GM TABLET PO SCH ×4 (07:54→20:39)
[2022-06-18] MEDS: INSULIN LISPRO 100 UNIT/ML SUBCUT SCH ×4 (08:30→20:39)
[2022-06-18] MEDS: ATORVASTATIN 80 MG TABLET PO SCH (09:44)
[2022-06-18] MEDS: MONTELUKAST 10 MG TABLET PO SCH ×2 (09:44→20:39)
[2022-06-18] MEDS: METOPROLOL TARTRATE 25 MG TABLET PO SCH ×2 (09:44→20:39)
[2022-06-18] MEDS: FLUCONAZOLE 200 MG TABLET PO SCH (09:44)
[2022-06-18] MEDS: DOCUSATE SODIUM 100 MG CAPSULE PO SCH ×2 (09:44→20:39)
[2022-06-18] MEDS: PANTOPRAZOLE 40 MG TABLET PO SCH (09:44)
[2022-06-18] MEDS: ASPIRIN EC 81 MG TABLET PO SCH (09:44)
[2022-06-18] MEDS: CHOLECALCIFEROL 5,000 UNIT TABLET PO SCH ×2 (09:44→20:39)
[2022-06-18] MEDS: ASCORBIC ACID 500 MG TABLET PO SCH ×2 (09:44→20:39)
[2022-06-18] MEDS ORDERED: FUROSEMIDE 40 MG/4 ML VIAL ONE (14:38)
[2022-06-18] MEDS ORDERED: FUROSEMIDE 40 MG/4 ML VIAL IV ONE (14:40)
[2022-06-18] MEDS: MORPHINE 2 MG/1 ML SYRINGE IV PRN ×3 (15:14→23:00)
[2022-06-18] MEDS ORDERED: NITROGLYCERIN 2% OINT 1 INCH/GM PACK TOP ONE (18:27)
[2022-06-18] MEDS: INSULIN GLARGINE 100 UNIT/ML SUBCUT SCH (20:39)
[2022-06-18] MEDS: TAMSULOSIN 0.4 MG CAPSULE PO SCH (20:39)
[2022-06-19] MEDS: HEPARIN 5,000 UNIT/1 ML VIAL SUBCUT SCH ×2 (01:15→13:10)
[2022-06-19] MEDS: CLINDAMYCIN INJ 300 MG/50 ML PREMIX IV SCH ×2 (01:15→09:27)
[2022-06-19] MEDS: DEXAMETHASONE 4 MG/1 ML VIAL IV SCH ×3 (01:15→17:53)
[2022-06-19] MEDS: MORPHINE 2 MG/1 ML SYRINGE IV PRN ×4 (02:44→11:05)
[2022-06-19] MEDS: ALBUTEROL/IPRATROPIUM 3 ML NEB RESP TX SCH ×6 (02:45→22:10)
[2022-06-19 03:44] LABS: Basophils % 0.1 % (0.0-0.8); Hemoglobin 10.3 GM/DL (14.0-18.0); Immature Granulocytes % 2.2 %; Immature Granulocytes Absolute 0.37 #; Lymphocytes # 0.1 10*3/uL (1.4-4.0); Lymphocytes % 0.7 % (21.2-54.2); Mean Corpuscular HGB Conc 31.2 GM/DL (32-36); Mean Corpuscular Volume 90.4 FL (87-102); Mean Platelet Volume 11.4 FL (9.6-12.0); Monocytes # 0.7 10*3/uL (0.11-0.8); Monocytes % 3.8 % (1.7-12.7); NRBC # 0.13 10*3/uL; Neutrophils % 93.2 % (38.7-73.9); Platelet Count 139 T/CUMM (130-400); Red Blood Count 3.65 MC/CUMM (3.8-5.5); Red Cell Distribution Width 25.4 % (9.3-17.3); White Blood Count 17.1 T/CUMM (4-12)
[2022-06-19 04:03] LABS: Hypochromia Slight; Lymphocytes 1 % (20-55); Platelet Estimate Normal; Total Cells Counted 100
[2022-06-19 04:12] LABS: Albumin 2.4 G/DL (3.4-5.0); Bilirubin,Total 0.4 MG/DL (0.20-1.00); Calcium 8.5 MG/DL (8.5-10.1); Osmolality,Calculated 292.3 MOS/KG (273-304); Potassium 4.8 MMOL/L (3.5-5.1)
[2022-06-19] MEDS: LEVOTHYROXINE 100 MCG TABLET PO SCH (06:08)
[2022-06-19] MEDS: INSULIN LISPRO 100 UNIT/ML SUBCUT SCH ×5 (08:24→23:51)
[2022-06-19] MEDS: DOCUSATE SODIUM 100 MG CAPSULE PO SCH ×2 (09:20→21:06)
[2022-06-19] MEDS: ATORVASTATIN 80 MG TABLET PO SCH (09:20)
[2022-06-19] MEDS: ASPIRIN EC 81 MG TABLET PO SCH (09:20)
[2022-06-19] MEDS: SUCRALFATE 1 GM TABLET PO SCH ×4 (09:20→21:06)
[2022-06-19] MEDS: CHOLECALCIFEROL 5,000 UNIT TABLET PO SCH ×2 (09:21→21:06)
[2022-06-19] MEDS: ASCORBIC ACID 500 MG TABLET PO SCH ×2 (09:21→21:06)
[2022-06-19] MEDS: METOPROLOL TARTRATE 25 MG TABLET PO SCH ×2 (09:21→21:06)
[2022-06-19] MEDS: PANTOPRAZOLE 40 MG TABLET PO SCH (09:21)
[2022-06-19] MEDS: MONTELUKAST 10 MG TABLET PO SCH ×2 (09:21→21:06)
[2022-06-19] MEDS: SULFAMETH/TRIMETH INJ 200 MG in DEXTROSE 5% 250 ML IV SCH ×3 (11:37→23:06)
[2022-06-19] MEDS ORDERED: ETOMIDATE 20 MG/10 ML VIAL IV ONE ×2 (14:51→15:00)
[2022-06-19] MEDS ORDERED: SUCCINYLCHOLINE 200 MG/10 ML VIAL ONE (14:52)
[2022-06-19] MEDS ORDERED: SUCCINYLCHOLINE 200 MG/10 ML VIAL IV ONE (15:00)
[2022-06-19] MEDS: MIDAZOLAM 100 MG in SODIUM CHLORIDE 0.9% 80 ML IV PRN (15:40)
[2022-06-19] MEDS: fentaNYL INJ 1,250 MCG in SODIUM CHLORIDE 0.9% 225 ML IV PRN ×4 (15:41→22:15)
[2022-06-19 16:10] LABS: Arterial Base Excess iSTAT 0 MMOL/L (-2.5-2.5); Arterial Bicarbonate iSTAT 26.9 MMOL/L (20-26); Arterial O2 Saturation iSTAT 97 % (95-100); Arterial PCO2 iSTAT 56 MM HG (35-48); Arterial PO2 iSTAT 104 MM HG (80-95); Arterial Total CO2 iSTAT 29 MMO/L (23-27); Arterial pH iSTAT 7.289 (7.35-7.45)
[2022-06-19] MEDS: PHENYLEPHRINE DRIP 40 MG/250 ML PREMIX IV PRN (19:09)
[2022-06-19] MEDS: TAMSULOSIN 0.4 MG CAPSULE PO SCH (21:06)
[2022-06-19] MEDS: INSULIN GLARGINE 100 UNIT/ML SUBCUT SCH (21:06)
[2022-06-20] MEDS: fentaNYL INJ 1,250 MCG in SODIUM CHLORIDE 0.9% 225 ML IV PRN ×3 (01:23→17:00)
[2022-06-20] MEDS: DEXAMETHASONE 4 MG/1 ML VIAL IV SCH ×3 (01:50→17:18)
[2022-06-20] MEDS: MIDAZOLAM 100 MG in SODIUM CHLORIDE 0.9% 80 ML IV PRN ×2 (02:18→17:00)
[2022-06-20] MEDS: ALBUTEROL/IPRATROPIUM 3 ML NEB RESP TX SCH ×6 (02:51→22:45)
[2022-06-20 03:49] LABS: Basophils % 0.1 % (0.0-0.8); Hematocrit 30.9 VOL% (42.0-52.0); Hemoglobin 9.1 GM/DL (14.0-18.0); Immature Granulocytes % 1.8 %; Immature Granulocytes Absolute 0.31 #; Lymphocytes # 0.1 10*3/uL (1.4-4.0); Lymphocytes % 0.7 % (21.2-54.2); Mean Corpuscular HGB Conc 29.4 GM/DL (32-36); Mean Corpuscular Volume 95.7 FL (87-102); Mean Platelet Volume 10.7 FL (9.6-12.0); Monocytes # 0.5 10*3/uL (0.11-0.8); Monocytes % 2.6 % (1.7-12.7); NRBC # 0.09 10*3/uL; Neutrophils % 94.8 % (38.7-73.9); Platelet Count 127 T/CUMM (130-400); Red Blood Count 3.23 MC/CUMM (3.8-5.5); Red Cell Distribution Width 25.1 % (9.3-17.3); White Blood Count 17.4 T/CUMM (4-12)
[2022-06-20 03:56] LABS: Arterial Base Excess iSTAT -2 MMOL/L (-2.5-2.5); Arterial Bicarbonate iSTAT 26.3 MMOL/L (20-26); Arterial O2 Saturation iSTAT 100 % (95-100); Arterial PCO2 iSTAT 61 MM HG (35-48); Arterial PO2 iSTAT 236 MM HG (80-95); Arterial Total CO2 iSTAT 28 MMO/L (23-27); Arterial pH iSTAT 7.247 (7.35-7.45)
[2022-06-20 03:59] LABS: INR 1.1; PT Patient Result 12.1 SECS (10.1-12.1); Partial Thromboplastin Time 27.7 SECS (23.7-32.9)
[2022-06-20 04:05] LABS: Alanine Aminotransferase 96 U/L (16-61); Albumin 2.2 G/DL (3.4-5.0); Alkaline Phosphatase 104 U/L (45-117); Aspartate Amino Transferase 66 U/L (0-37); Bilirubin,Total < 0.39 MG/DL (0.20-1.00); Blood Urea Nitrogen 63 MG/DL (7-18); Calcium 8.1 MG/DL (8.5-10.1); Carbon Dioxide 26 MMOL/L (21-32); Chloride 108 MMOL/L (98-107); Glucose 169 MG/DL (74-106); Osmolality,Calculated 300.4 MOS/KG (273-304); Potassium 4.7 MMOL/L (3.5-5.1); Sodium 140 MMOL/L (136-145); Total Protein 5.3 G/DL (6.4-8.2)
[2022-06-20 04:18] LABS: Hypochromia Slight; Platelet Estimate Normal; Total Cells Counted 100
[2022-06-20] MEDS: SULFAMETH/TRIMETH INJ 200 MG in DEXTROSE 5% 250 ML IV SCH ×4 (04:57→23:25)
[2022-06-20] MEDS: PHENYLEPHRINE DRIP 40 MG/250 ML PREMIX IV PRN ×3 (05:11→23:01)
[2022-06-20] MEDS: INSULIN LISPRO 100 UNIT/ML SUBCUT SCH ×3 (06:22→17:18)
[2022-06-20] MEDS: LEVOTHYROXINE 100 MCG TABLET PO SCH (06:28)
[2022-06-20] MEDS: MONTELUKAST 10 MG TABLET PO SCH ×2 (08:09→21:52)
[2022-06-20] MEDS: ATORVASTATIN 80 MG TABLET PO SCH (08:09)
[2022-06-20] MEDS: ASCORBIC ACID 500 MG TABLET PO SCH ×2 (08:10→21:52)
[2022-06-20] MEDS: PANTOPRAZOLE 40 MG TABLET PO SCH (08:10)
[2022-06-20] MEDS: METOPROLOL TARTRATE 25 MG TABLET PO SCH ×2 (08:10→21:51)
[2022-06-20] MEDS: ASPIRIN EC 81 MG TABLET PO SCH (08:10)
[2022-06-20] MEDS: SUCRALFATE 1 GM TABLET PO SCH ×4 (08:10→21:50)
[2022-06-20] MEDS: CHOLECALCIFEROL 5,000 UNIT TABLET PO SCH ×2 (08:12→21:52)
[2022-06-20] MEDS: DOCUSATE SODIUM 100 MG CAPSULE PO SCH ×2 (08:12→21:50)
[2022-06-20 09:41] LABS: Arterial Base Excess iSTAT -2 MMOL/L (-2.5-2.5); Arterial Bicarbonate iSTAT 24.6 MMOL/L (20-26); Arterial O2 Saturation iSTAT 83 % (95-100); Arterial PCO2 iSTAT 50 MM HG (35-48); Arterial PO2 iSTAT 52 MM HG (80-95); Arterial Total CO2 iSTAT 26 MMO/L (23-27); Arterial pH iSTAT 7.299 (7.35-7.45)
[2022-06-20 09:59] VITALS: BP 113/64
[2022-06-20] MEDS ORDERED: SODIUM CHLORIDE 0.45% 500 ML IV ONE (10:04)
[2022-06-20] MEDS: SODIUM CHLORIDE 0.45% 1,000 ML IV SCH (10:55)
[2022-06-20] MEDS: HEPARIN 5,000 UNIT/1 ML VIAL SUBCUT SCH (12:08)
[2022-06-20] MEDS: TAMSULOSIN 0.4 MG CAPSULE PO SCH (21:50)
[2022-06-20] MEDS: INSULIN GLARGINE 100 UNIT/ML SUBCUT SCH (21:50)
[2022-06-21] MEDS: INSULIN LISPRO 100 UNIT/ML SUBCUT SCH ×4 (00:06→17:00)
[2022-06-21] MEDS: SODIUM CHLORIDE 0.45% 1,000 ML IV SCH ×2 (00:31→13:00)
[2022-06-21] MEDS: DEXAMETHASONE 4 MG/1 ML VIAL IV SCH ×3 (01:32→17:06)
[2022-06-21] MEDS: HEPARIN 5,000 UNIT/1 ML VIAL SUBCUT SCH ×2 (01:32→12:06)
[2022-06-21] MEDS: ALBUTEROL/IPRATROPIUM 3 ML NEB RESP TX SCH ×6 (02:19→23:10)
[2022-06-21] MEDS: fentaNYL INJ 1,250 MCG in SODIUM CHLORIDE 0.9% 225 ML IV PRN (03:00)
[2022-06-21 03:20] LABS: ABG Base Excess -3.7 MMOL/L (-2.5-2.5); ABG HCO3 21.3 MMOL/L (20-26); ABG Oxygen Saturation 95.4 % (95-100); ABG PCO2 48.3 MM HG (35-48); ABG PH 7.285 (7.35-7.45); ABG TCO2 21.7 MMOL/L (23-27)
[2022-06-21 05:02] LABS: Basophils % 0.1 % (0.0-0.8); Hematocrit 26.7 VOL% (42.0-52.0); Hemoglobin 7.7 GM/DL (14.0-18.0); Immature Granulocytes % 1.3 %; Immature Granulocytes Absolute 0.16 #; Lymphocytes # 0.1 10*3/uL (1.4-4.0); Lymphocytes % 0.6 % (21.2-54.2); Mean Corpuscular HGB Conc 28.8 GM/DL (32-36); Mean Corpuscular Volume 96.7 FL (87-102); Mean Platelet Volume 12.6 FL (9.6-12.0); Monocytes # 0.3 10*3/uL (0.11-0.8); Monocytes % 2.1 % (1.7-12.7); NRBC # 0.08 10*3/uL; Neutrophils % 95.9 % (38.7-73.9); Platelet Count 90 T/CUMM (130-400); Red Blood Count 2.76 MC/CUMM (3.8-5.5); Red Cell Distribution Width 25.4 % (9.3-17.3); White Blood Count 12.3 T/CUMM (4-12)
[2022-06-21 05:17] LABS: Alanine Aminotransferase 120 U/L (16-61); Albumin 1.8 G/DL (3.4-5.0); Alkaline Phosphatase 96 U/L (45-117); Aspartate Amino Transferase 65 U/L (0-37); Bilirubin,Total < 0.39 MG/DL (0.20-1.00); Blood Urea Nitrogen 52 MG/DL (7-18); Calcium 7.9 MG/DL (8.5-10.1); Carbon Dioxide 24 MMOL/L (21-32); Chloride 109 MMOL/L (98-107); Glucose 287 MG/DL (74-106); Osmolality,Calculated 302.4 MOS/KG (273-304); Potassium 4.7 MMOL/L (3.5-5.1); Sodium 140 MMOL/L (136-145); Total Protein 4.8 G/DL (6.4-8.2)
[2022-06-21 05:27] LABS: Hypochromia Slight; Microcytosis Slight; Platelet Estimate Decreased; Total Cells Counted 100
[2022-06-21] MEDS: LEVOTHYROXINE 100 MCG TABLET PO SCH (05:42)
[2022-06-21] MEDS: SULFAMETH/TRIMETH INJ 200 MG in DEXTROSE 5% 250 ML IV SCH ×4 (05:42→22:30)
[2022-06-21] MEDS: ASCORBIC ACID 500 MG TABLET PO SCH ×2 (08:14→22:00)
[2022-06-21] MEDS: PANTOPRAZOLE 40 MG VIAL IV SCH (08:14)
[2022-06-21] MEDS: SUCRALFATE 1 GM TABLET PO SCH ×4 (08:14→22:00)
[2022-06-21] MEDS: METOPROLOL TARTRATE 25 MG TABLET PO SCH ×3 (08:14→21:59)
[2022-06-21] MEDS: MONTELUKAST 10 MG TABLET PO SCH ×2 (08:14→22:00)
[2022-06-21] MEDS: CHOLECALCIFEROL 5,000 UNIT TABLET PO SCH ×2 (08:14→22:00)
[2022-06-21] MEDS: DOCUSATE SODIUM 100 MG CAPSULE PO SCH ×2 (08:14→22:00)
[2022-06-21] MEDS: ATORVASTATIN 80 MG TABLET PO SCH (08:15)
[2022-06-21] MEDS: ASPIRIN CHEW 81 MG TABLET PO SCH (08:15)
[2022-06-21] MEDS: MIDAZOLAM 100 MG in SODIUM CHLORIDE 0.9% 80 ML IV PRN (13:00)
[2022-06-21] MEDS: LORazepam 1 MG TABLET PO PRN (15:31)
[2022-06-21] MEDS ORDERED: ETOMIDATE 20 MG/10 ML VIAL IV ONE (19:56)
[2022-06-21] MEDS ORDERED: ROCURONIUM 100 MG/10 ML VIAL IV ONE (19:56)
[2022-06-21] MEDS: TAMSULOSIN 0.4 MG CAPSULE PO SCH (22:00)
[2022-06-21] MEDS: INSULIN GLARGINE 100 UNIT/ML SUBCUT SCH (22:00)
[2022-06-21] MEDS: PIPERACILLIN/TAZOBACTAM 3,375 MG in SODIUM CHLORIDE 0.9% 100 ML IV SCH (22:30)
[2022-06-22] MEDS: fentaNYL INJ 1,250 MCG in SODIUM CHLORIDE 0.9% 225 ML IV PRN ×5 (00:12→21:28)
[2022-06-22] MEDS: HEPARIN 5,000 UNIT/1 ML VIAL SUBCUT SCH ×2 (00:28→13:35)
[2022-06-22] MEDS: INSULIN LISPRO 100 UNIT/ML SUBCUT SCH ×4 (00:28→17:40)
[2022-06-22] MEDS: DEXAMETHASONE 4 MG/1 ML VIAL IV SCH ×3 (00:32→17:09)
[2022-06-22] MEDS: ALBUTEROL/IPRATROPIUM 3 ML NEB RESP TX SCH ×6 (02:55→23:55)
[2022-06-22 03:25] LABS: ABG Base Excess -5.2 MMOL/L (-2.5-2.5); ABG HCO3 20.1 MMOL/L (20-26); ABG Oxygen Saturation 97.5 % (95-100); ABG PCO2 54.8 MM HG (35-48); ABG PH 7.226 (7.35-7.45); ABG TCO2 21.5 MMOL/L (23-27)
[2022-06-22] MEDS: MIDAZOLAM 100 MG in SODIUM CHLORIDE 0.9% 80 ML IV PRN ×2 (03:29→23:09)
[2022-06-22] MEDS: SODIUM CHLORIDE 0.45% 1,000 ML IV SCH ×3 (03:31→17:04)
[2022-06-22 04:49] LABS: Basophils % 0.1 % (0.0-0.8); Hematocrit 27.8 VOL% (42.0-52.0); Hemoglobin 8.2 GM/DL (14.0-18.0); Immature Granulocytes % 0.7 %; Immature Granulocytes Absolute 0.07 #; Lymphocytes % 0.3 % (21.2-54.2); Mean Corpuscular HGB Conc 29.5 GM/DL (32-36); Mean Corpuscular Volume 96.2 FL (87-102); Monocytes # 0.2 10*3/uL (0.11-0.8); Monocytes % 2.3 % (1.7-12.7); NRBC # 0.17 10*3/uL; Neutrophils % 96.6 % (38.7-73.9); Platelet Count 96 T/CUMM (130-400); Red Blood Count 2.89 MC/CUMM (3.8-5.5); Red Cell Distribution Width 25.6 % (9.3-17.3); White Blood Count 9.6 T/CUMM (4-12)
[2022-06-22 05:12] LABS: Alanine Aminotransferase 136 U/L (16-61); Albumin 1.9 G/DL (3.4-5.0); Alkaline Phosphatase 102 U/L (45-117); Aspartate Amino Transferase 73 U/L (0-37); Bilirubin,Total < 0.39 MG/DL (0.20-1.00); Blood Urea Nitrogen 53 MG/DL (7-18); Calcium 8.4 MG/DL (8.5-10.1); Carbon Dioxide 23 MMOL/L (21-32); Chloride 107 MMOL/L (98-107); Glucose 167 MG/DL (74-106); Nucleated Red Blood Cells 2 /100 WBC (0-5); Platelet Estimate Decreased; Sodium 136 MMOL/L (136-145); Total Cells Counted 100
[2022-06-22 05:13] LABS: Hypochromia Slight; Macrocytosis Slight
[2022-06-22] MEDS: SULFAMETH/TRIMETH INJ 200 MG in DEXTROSE 5% 250 ML IV SCH ×4 (06:07→22:58)
[2022-06-22] MEDS: LEVOTHYROXINE 100 MCG TABLET PO SCH (06:07)
[2022-06-22] MEDS: PIPERACILLIN/TAZOBACTAM 3,375 MG in SODIUM CHLORIDE 0.9% 100 ML IV SCH ×3 (06:08→21:27)
[2022-06-22] MEDS: DOCUSATE SODIUM 100 MG CAPSULE PO SCH ×2 (09:47→21:31)
[2022-06-22] MEDS: METOPROLOL TARTRATE 25 MG TABLET PO SCH ×2 (09:47→21:31)
[2022-06-22] MEDS: ASPIRIN CHEW 81 MG TABLET PO SCH (09:47)
[2022-06-22] MEDS: ATORVASTATIN 80 MG TABLET PO SCH (09:47)
[2022-06-22] MEDS: MONTELUKAST 10 MG TABLET PO SCH ×2 (09:47→21:31)
[2022-06-22] MEDS: SUCRALFATE 1 GM TABLET PO SCH ×4 (09:48→21:31)
[2022-06-22] MEDS: CHOLECALCIFEROL 5,000 UNIT TABLET PO SCH ×2 (09:48→21:30)
[2022-06-22] MEDS: ASCORBIC ACID 500 MG TABLET PO SCH ×2 (09:48→21:30)
[2022-06-22] MEDS: PANTOPRAZOLE 40 MG VIAL IV SCH (09:50)
[2022-06-22] MEDS: METOCLOPRAMIDE 10 MG/2 ML VIAL IV SCH ×3 (09:52→21:28)
[2022-06-22] MEDS: TAMSULOSIN 0.4 MG CAPSULE PO SCH (21:31)
[2022-06-22] MEDS: INSULIN GLARGINE 100 UNIT/ML SUBCUT SCH (21:31)
[2022-06-22 23:31] LABS: Pneumocystis jiroveci Result Negative (Negative); Pneumocystis jiroveci Source sputum
[2022-06-23] MEDS: HEPARIN 5,000 UNIT/1 ML VIAL SUBCUT SCH ×2 (00:54→14:27)
[2022-06-23] MEDS: DEXAMETHASONE 4 MG/1 ML VIAL IV SCH ×3 (00:54→16:32)
[2022-06-23] MEDS: INSULIN LISPRO 100 UNIT/ML SUBCUT SCH ×4 (00:56→18:23)
[2022-06-23] MEDS: ALBUTEROL/IPRATROPIUM 3 ML NEB RESP TX SCH ×7 (00:56→22:34)
[2022-06-23] MEDS: METOCLOPRAMIDE 10 MG/2 ML VIAL IV SCH ×4 (03:25→21:27)
[2022-06-23 04:05] LABS: Arterial Base Excess iSTAT -6 MMOL/L (-2.5-2.5); Arterial Bicarbonate iSTAT 21.5 MMOL/L (20-26); Arterial O2 Saturation iSTAT 89 % (95-100); Arterial PCO2 iSTAT 55 MM HG (35-48); Arterial PO2 iSTAT 69 MM HG (80-95); Arterial Total CO2 iSTAT 23 MMO/L (23-27); Arterial pH iSTAT 7.202 (7.35-7.45)
[2022-06-23] MEDS: SODIUM CHLORIDE 0.45% 1,000 ML IV SCH ×2 (04:48→18:08)
[2022-06-23] MEDS: fentaNYL INJ 1,250 MCG in SODIUM CHLORIDE 0.9% 225 ML IV PRN ×3 (04:49→19:11)
[2022-06-23] MEDS: PIPERACILLIN/TAZOBACTAM 3,375 MG in SODIUM CHLORIDE 0.9% 100 ML IV SCH ×3 (05:04→21:25)
[2022-06-23 06:01] LABS: Hematocrit 26.9 VOL% (42.0-52.0); Hemoglobin 7.8 GM/DL (14.0-18.0); Immature Granulocytes % 0.6 %; Immature Granulocytes Absolute 0.04 #; Lymphocytes % 0.3 % (21.2-54.2); Mean Corpuscular Volume 97.1 FL (87-102); Monocytes # 0.1 10*3/uL (0.11-0.8); Monocytes % 1.5 % (1.7-12.7); NRBC # 0.19 10*3/uL; Neutrophils % 97.6 % (38.7-73.9); Platelet Count 67 T/CUMM (130-400); Red Blood Count 2.77 MC/CUMM (3.8-5.5); Red Cell Distribution Width 25.8 % (9.3-17.3); White Blood Count 6.7 T/CUMM (4-12)
[2022-06-23] MEDS: LEVOTHYROXINE 100 MCG TABLET PO SCH (06:01)
[2022-06-23] MEDS: SULFAMETH/TRIMETH INJ 200 MG in DEXTROSE 5% 250 ML IV SCH ×3 (06:18→17:08)
[2022-06-23 06:25] LABS: Alanine Aminotransferase 178 U/L (16-61); Albumin 1.8 G/DL (3.4-5.0); Alkaline Phosphatase 91 U/L (45-117); Aspartate Amino Transferase 101 U/L (0-37); Bilirubin,Total < 0.39 MG/DL (0.20-1.00); Blood Urea Nitrogen 40 MG/DL (7-18); Calcium 8.2 MG/DL (8.5-10.1); Carbon Dioxide 22 MMOL/L (21-32); Chloride 106 MMOL/L (98-107); Glucose 126 MG/DL (74-106); Osmolality,Calculated 281.1 MOS/KG (273-304); Potassium 5.4 MMOL/L (3.5-5.1); Sodium 135 MMOL/L (136-145); Total Protein 5.1 G/DL (6.4-8.2)
[2022-06-23 07:28] LABS: Lymphocytes 1 % (20-55); Nucleated Red Blood Cells 4 /100 WBC (0-5); Total Cells Counted 100
[2022-06-23 07:29] LABS: Anisocytosis 2+; Platelet Estimate Decreased; Poikilocytosis 2+; Schistocytes Slight
[2022-06-23] MEDS: ASPIRIN CHEW 81 MG TABLET PO SCH (08:50)
[2022-06-23] MEDS: ATORVASTATIN 80 MG TABLET PO SCH (08:50)
[2022-06-23] MEDS: ASCORBIC ACID 500 MG TABLET PO SCH ×2 (08:50→21:28)
[2022-06-23] MEDS: PANTOPRAZOLE 40 MG VIAL IV SCH (08:50)
[2022-06-23] MEDS: CHOLECALCIFEROL 5,000 UNIT TABLET PO SCH ×2 (08:51→21:28)
[2022-06-23] MEDS: SUCRALFATE 1 GM TABLET PO SCH ×4 (08:51→21:28)
[2022-06-23] MEDS: MONTELUKAST 10 MG TABLET PO SCH ×2 (08:51→21:28)
[2022-06-23] MEDS: DOCUSATE SODIUM 100 MG CAPSULE PO SCH ×2 (08:51→21:28)
[2022-06-23] MEDS: METOPROLOL TARTRATE 25 MG TABLET PO SCH ×2 (08:51→20:49)
[2022-06-23] MEDS ORDERED: SODIUM POLYSTYRENE SULFATE 15 GM/60 ML BOTTLE PO ONE (09:24)
[2022-06-23 12:27] LABS: Arterial Base Excess iSTAT -9 MMOL/L (-2.5-2.5); Arterial O2 Saturation iSTAT 89 % (95-100); Arterial PCO2 iSTAT 61 MM HG (35-48); Arterial PO2 iSTAT 75 MM HG (80-95); Arterial Total CO2 iSTAT 22 MMO/L (23-27); Arterial pH iSTAT 7.125 (7.35-7.45)
[2022-06-23] MEDS ORDERED: FUROSEMIDE 20 MG/2 ML VIAL IV ONE (12:30)
[2022-06-23 13:10] LABS: Arterial Base Excess iSTAT -9 MMOL/L (-2.5-2.5); Arterial Bicarbonate iSTAT 19.4 MMOL/L (20-26); Arterial O2 Saturation iSTAT 90 % (95-100); Arterial PCO2 iSTAT 59 MM HG (35-48); Arterial PO2 iSTAT 77 MM HG (80-95); Arterial Total CO2 iSTAT 21 MMO/L (23-27); Arterial pH iSTAT 7.129 (7.35-7.45)
[2022-06-23] MEDS ORDERED: LEVOFLOXACIN INJ 750 MG/150 ML PREMIX IV SCH (14:00)
[2022-06-23] MEDS ORDERED: FUROSEMIDE 20 MG/2 ML VIAL IV SCH (16:00)
[2022-06-23 16:19] LABS: Arterial Base Excess iSTAT -9 MMOL/L (-2.5-2.5); Arterial Bicarbonate iSTAT 19.3 MMOL/L (20-26); Arterial O2 Saturation iSTAT 93 % (95-100); Arterial PCO2 iSTAT 57 MM HG (35-48); Arterial PO2 iSTAT 86 MM HG (80-95); Arterial Total CO2 iSTAT 21 MMO/L (23-27); Arterial pH iSTAT 7.141 (7.35-7.45)
[2022-06-23] MEDS ORDERED: ENOXAPARIN 40 MG/0.4 ML SYRINGE SUBCUT SCH (21:00)
[2022-06-23] MEDS: INSULIN GLARGINE 100 UNIT/ML SUBCUT SCH (21:26)
[2022-06-23] MEDS: TAMSULOSIN 0.4 MG CAPSULE PO SCH (21:28)
[2022-06-23] MEDS: PHENYLEPHRINE DRIP 40 MG/250 ML PREMIX IV PRN (21:31)
[2022-06-23] MEDS ORDERED: SODIUM BICARBONATE 50 MEQ/50 ML VIAL IV ONE ×2 (22:37→22:38)
[2022-06-23 22:39] LABS: Arterial Base Excess iSTAT -9 MMOL/L (-2.5-2.5); Arterial Bicarbonate iSTAT 18.8 MMOL/L (20-26); Arterial O2 Saturation iSTAT 79 % (95-100); Arterial PCO2 iSTAT 50 MM HG (35-48); Arterial PO2 iSTAT 55 MM HG (80-95); Arterial Total CO2 iSTAT 20 MMO/L (23-27); Arterial pH iSTAT 7.184 (7.35-7.45)
[2022-06-24] MEDS: fentaNYL INJ 1,250 MCG in SODIUM CHLORIDE 0.9% 225 ML IV PRN (00:10)
[2022-06-24] MEDS: DEXAMETHASONE 4 MG/1 ML VIAL IV SCH (00:58)
[2022-06-24] MEDS: INSULIN LISPRO 100 UNIT/ML SUBCUT SCH (00:59)
[2022-06-24] MEDS: SULFAMETH/TRIMETH INJ 200 MG in DEXTROSE 5% 250 ML IV SCH (01:07)
[2022-06-24] MEDS: PHENYLEPHRINE DRIP 40 MG/250 ML PREMIX IV PRN (01:11)
[2022-06-24] MEDS ORDERED: EPINEPHrine 1 MG/10 ML SYRINGE IV ONE (01:39)
[2022-06-24] MEDS ORDERED: SODIUM BICARBONATE 50 MEQ/50 ML SYRINGE IV ONE (01:41)
[2022-06-24] MEDS ORDERED: CALCIUM CHLORIDE 1,000 MG/10 ML SYRINGE IV ONE (01:46)
[2022-06-24] MEDS ORDERED: DEXTROSE 50% 25 GM/50 ML SYRINGE IV ONE (01:47)
[2022-06-24] MEDS ORDERED: DOPamine 800 MG/250 ML PREMIX IV ONE (01:48)
== END 2022-06-24 02:01 | disposition expired | DRG 166 ==
LOC: N.ED 08:08 → N.EDINP 12:57 → SUATTDRO 12:57 → N.TELES 16:20 → N.ICU 06-07 03:46
PROVIDERS: ADMIT Internal Medicine; ATTEND Family Medicine
PROC: BRONCHB (2022-06-04 08:20)